=== PATIENT | male | born 1960 | race Caucasian/White ===

== ENCOUNTER 2016-06-08 09:55 | Inpatient (IN) | payer MEDICARE, OTHER ==
--- NOTE | ~2016-06-08 | IDS ---
Interim Discharge Summary [facility] [address] [place]. [address] NAME: SIMA DONG : 56 STATUS : ADM IN PAT#: [id number] AGE: 55 ADM/REG DATE : 06/08/16 MR#: [id number] REPORT SERV DATE: 07/07/16 DICTATED BY: JEFF MCCORMACK DATE: 07/07/16 REPORT STATUS : Draft TRANSCRIBED BY: MODL DATE: 07/07/16 ADMISSION DATE: 06/08/2016 DISCHARGE DATE: DATE OF INTERIM DISCHARGE: 07/07/2016. Please refer to interim discharge that was done on 06/17/2016. 06/28/2014, operative report by Dr. Perales. Upper GI endoscopy; impression, LA grade D reflux esophagitis. A gastrojejunostomy were found, anastomosis characterized by ulceration and active hemorrhage at the intact staple line. Injected and clip was placed. Jejunal blood, but no active bleeding distal to the anastomosis that was seen. Due to the bleeding and inability to localize the site for safe percutaneous placement, inadequate transillumination and inadequate 1:1 localization. PEG was not completed. Recommendation: Returnthe patient to hospital. Use Protonix 40 mg IV b.i.d. If the patient requires PEG tube, will need IR placement. Would not recommend at this time due to active GI bleeding. 06/30/2016, CT abdomen and pelvis with contrast. Intraluminal formation of large thrombus at the Alonzo-en-Y anastomosis in the left lower quadrant obstructing the limb leading to the duodenum and stomach. Critical results were discussed with Dr. Barnard at 1930 hours. 07/04/2016, CT of the abdomen and pelvis with contrast. Persistence of free air similar to involvement to 06/30/2016. Perforated hollow viscus is not excluded. Clinical correlation recommended. Developing discrete collection suspicious for abscess along the left lateral peritoneal cavity and in the pelvic cul-de-sac. Decreasing dilatation of bowel or anastomosis in the left lower quadrant consistent with evolving hematoma. 07/04/2016, CT-guided drain, technically successful decompression of left abdominal abscess. Exam was documented with 23 CT spot films. There were no immediate complications. Approximately 75 mL of purulent material was obtained and sent for cultures. 06/18/2016, operative report by Dr. Vigil: Procedure: Pancreaticojejunostomy Alonzo-en-Y, gastrojejunostomy with cholecystectomy. Preop diagnosis: Pancreatic pseudocyst with duodenal obstruction. Postop diagnosis: Pancreatic pseudocyst with duodenal obstruction with cholecystitis. Please refer to interim discharge that was done by nurse practitioner, Clint Murcia. REASON FOR ADMISSION: Pancreatic cyst with duodenal obstruction. 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 The patient underwent surgical procedures for the duodenal obstruction that was documented on 06/18/[address] Vigil. The patient underwent pancreaticojejunostomy, gastrojejunostomy, and cholecystectomy. Interim Discharge Summary [address] [address] NAME: SIMA DONG : 56 STATUS : ADM IN [facility]#: [id number] AGE: 55 ADM/REG DATE : 06/08/16 MR#: [id number] REPORT SERV DATE: 07/07/16 DICTATED BY: JEFF MCCORMACK DATE: 07/07/16 REPORT STATUS : Draft TRANSCRIBED BY: YOLANAD DATE: 07/07/16 The patient underwent procedure. Unfortunately, the patient had GI bleed, which Dr. Perales resolved with cauterization, however, the patient also developed abscess as well as a hematoma at the junction in the left lower quadrant, the limb leading to the duodenum in the stomach. The patient has been followed up by Surgery. Currently, the patient has been under conservative management regarding the abscess formation as well as the hematoma. DIAGNOSES ON DISCHARGE: 1. Epigastric pain secondary to pancreatic cyst with duodenal obstruction. Currently, the patient is asked to decrease his pain medication from Dilaudid to morphine, which has helped. Pancreatic pseudocyst with duodenal obstruction, status post resection since 06/18. 2. Hematoma/thrombus, left lower quadrant. Continue to monitor the patient's hemoglobin and hematocrit. The patient is still passing clots, purple in character. Reassured the patient that he will continue to pass clots at this time, and we will continue to monitor his hemoglobin. If hemoglobin falls below 8, transfuse two units packed RBCs. 3. Atrial fibrillation. Cardiology was consulted for the atrial fibrillation, but currently the patient is rate controlled. 4. Ileus secondary to epigastric pain secondary to pancreatic cyst with duodenal obstruction and hematoma/thrombus in the left lower quadrant. 5. Upper GI bleed secondary to epigastric pain secondary to pancreatic cyst with duodenal obstruction and hematoma/thrombus in the left lower quadrant. 6. Status post cauterization by Dr. Perales. Currently, the patient's hemoglobin and hematocrit has been stable. 7. Abscess formation in the left peritoneal cavity. The cultures have resulted, which showed positive for E coli, Klebsiella pneumoniae, and Staph aureus. The patient has been put on Zosyn, but with the addition of Staph aureus, the patient has also been put on vancomycin. Currently, we are waiting for the Staph aureus sensitivity. FBJ/MODL Jeff Mccormack MD / [id number] CC: Brown Vigil Jr., M.D.
--- NOTE | ~2016-06-08 | CN ---
Consultation Report [facility] [address] [place]. [address] NAME: SIMA DONG : 56 STATUS : ADM IN PAT#: [id number] AGE: 55 ADM/REG DATE : 06/08/16 MR#: [id number] REPORT SERV DATE: 06/09/16 DICTATED BY: DIMAS CAMPOS DATE: 06/09/16 REPORT STATUS : Draft TRANSCRIBED BY: MODL DATE: 06/09/16 SURGICAL CONSULTATION DATE OF CONSULTATION: 06/09/[address] Brown Vigil M.D. REQUESTING PHYSICIAN: Shayla Ivy M.D. REASON FOR CONSULTATION: Pancreatic mass, with nausea, vomiting, and duodenal obstruction. HISTORY OF PRESENT ILLNESS: This pleasant 55-year-old gentleman, who has had nausea and vomiting since 2006. He had outpatient evaluation since that time. He has Charcot-Justina- Tooth type 1C variant and is followed at [facility]. The patient has had progressive nausea, vomiting, and inability to keep any solids or liquids down, and was evaluated with a CT scan on an outpatient basis. The CT showed a cystic pancreatic mass in the uncinate process, with obstruction over the lower portion of the duodenum. Due to his progressive nausea and vomiting, he was admitted to the hospital. He had a CA 19-9, although that is normal. He has no fever, chills, abdominal pain, or significant change in bowel or bladder habits. He has had a significant weight loss since December. He states that some of this is on his own volition. He was scheduled to see GI on an outpatient basis prior to his system persisted and he is now admitted and MRI confirmed a complex pancreatic mass with no significant obstruction at this time, suspicious for a cystic neoplasm. He has no nausea or vomiting at this time. PAST MEDICAL HISTORY: As above. PAST SURGICAL HISTORY: Right inguinal hernia repair. ALLERGIES: ERYTHROMYCIN AND ALBUTEROL. SOCIAL HISTORY: The patient denies alcohol, tobacco, or illicit drug usage. FAMILY HISTORY: Positive for cancer. MEDICATIONS: [place] and Mobic. REVIEW OF SYSTEMS: The patient had some early bilious emesis. He has no coffee-grounds emesis or hematemesis. He has no bright red blood per rectum, melena, or change in the caliber of his stools. He has nausea with no vomiting at this time. He denies chest pain, shortness of breath, dyspnea on exertion, syncope, palpitations, jaundice, itching, or palmar erythema. LABORATORY DATA: Please see hospital chart. Consultation Report [facility] [address] [place]. [address] NAME: SIMA DONG : 56 STATUS : ADM IN [facility]#: [id number] AGE: 55 ADM/REG DATE : 06/08/16 MR#: [id number] REPORT SERV DATE: 06/09/16 DICTATED BY: DIMAS CAMPOS DATE: 06/09/16 REPORT STATUS : Draft TRANSCRIBED BY: MODL DATE: 06/09/16 ASSESSMENT: 1. Cystic pancreatic mass suspicious for neoplasm. 2. Progressive nausea and vomiting, secondary to pancreatic mass. 3. Jcxmelk-Dyfwa-Tbscv syndrome, type 1C variant. PLAN: At this time, we will continue bowel rest and IV fluids, for further evaluation. I will notify Dr. Vigil of the patient's admission, as the patient has progressive nausea and vomiting, we will order an NG tube. We will change IV fluids to contain dextrose. /YOLANDA Dimas Campos M.D. / [id number] CC: Zack Erickson M.D.
--- NOTE | ~2016-06-08 | EGD ---
EGD REPORT [facility] [address] [place]. [address] NAME: ALCIDES DONG : 56 STATUS : ADM IN PAT#: [id number] AGE: 55 ADM/REG DATE : 06/08/16 MR#: [id number] REPORT SERV DATE: 06/11/16 DICTATED BY: JAYCE GARCIA DATE: 06/11/16 REPORT STATUS : Draft TRANSCRIBED BY: [facility] DATE: 06/11/16 Endoscopy Center Patient Name: Alcides Dong Date of : 1960 Attending MD: JAYCE GARCIA MD Procedure Date No Time: 06/11/2016 Procedure: Upper EUS Indications: Cyst seen on CT scan, Cyst seen on MRI Medicines: Monitored Anesthesia Care Complications: No immediate complications. Estimated blood loss: Minimal. Procedure: After obtaining informed consent, the endoscope was passed under direct vision. Throughout the procedure, the patient's blood pressure, pulse, and oxygen saturations were monitored continuously. The GIF H190 [id number] was introduced through the mouth, and advanced to the second part of duodenum. The Endoscope was introduced through the mouth, and advanced to the second part of duodenum. The upper EUS was accomplished without difficulty. The patient tolerated the procedure well. Findings: Endoscopic Finding : The examined esophagus was endoscopically normal. The entire examined stomach was endoscopically normal. An acquired benign-appearing, intrinsic moderate stenosis was found at 2nd part of the duodenum from congestion of the mucosa and was non-traversed despite attempts with the EGD scope and the pediatric colonoscope. Endosonographic Finding : There was no sign of significant endosonographic abnormality in the common bile duct. No stones and no biliary sludge were identified. There was no sign of significant endosonographic abnormality in the entire pancreas. No masses, no cysts. The cystic lesion seen on the prior imaging was not seen, possibly due to the lesion being too distal to be reached with the EUS scope. There was no sign of significant endosonographic abnormality in the ampulla. No masses were identified. Endosonographic imaging of the visualized portion of the liver showed no abnormalities. A limited doppler examination was performed and revealed no significant vascular abnormalities. No lymphadenopathy seen. Impression: - Acquired duodenal congestion causing mild obstruction. EGD REPORT [address] [address] NAME: IKERALCIDES CASTILLO : 56 STATUS : ADM IN [facility]#: [id number] AGE: 55 ADM/REG DATE : 06/08/16 MR#: [id number] REPORT SERV DATE: 06/11/16 DICTATED BY: JAYCE GARCIA DATE: 06/11/16 REPORT STATUS : Draft TRANSCRIBED BY: [employer] DATE: 06/11/16 - There was no sign of significant pathology in the entire pancreas. - A cystic lesion was not seen on this examination - likely distal to the extent reached by the EUS scope Recommendation: - Return patient to hospital cuellar for ongoing care. - Do an upper GI series today. Procedure Code(s): --- Professional --- 81283, Esophagogastroduodenoscopy, flexible, transoral; with endoscopic ultrasound examination, including the esophagus, stomach, and either the duodenum or a surgically altered stomach where the jejunum is examined distal to the anastomosis Diagnosis Code(s): --- Professional --- K31.5, Obstruction of duodenum R93.3, Abnormal findings on diagnostic imaging of other parts of digestive tract R93.8, Abnormal findings on diagnostic imaging of other specified body structures CPT copyright 2013 [employer]. All rights reserved. The codes documented in this report are preliminary and upon lifeguard review may be revised to meet current compliance requirements. Jayce Garcia MD JAYCE GARCIA MD 06/11/2016 8:51 AM This report has been signed electronically. Number of Addenda: 0 Note Initiated On: 06/11/2016 7:47 AM Scope Withdrawal Time 0 hours 0 minutes 0 seconds [address] [id number]
--- NOTE | ~2016-06-08 | CN ---
Consultation Report [facility] [address] [place]. [address] NAME: SIMA DONG : 56 STATUS : ADM IN [facility]#: [id number] AGE: 55 ADM/REG DATE : 06/08/16 MR#: [id number] REPORT SERV DATE: 06/23/16 DICTATED BY: SONIDO SPRAGUE DATE: 06/23/16 REPORT STATUS : Draft TRANSCRIBED BY: MODL DATE: 06/23/16 CARDIOLOGY CONSULTATION DATE OF CONSULTATION: REASON FOR CONSULTATION: Atrial fibrillation with rapid ventricular rate. HISTORY OF PRESENT ILLNESS: The patient is a 55-year-old male, who has history of pancreatic cyst and duodenal obstruction. Intermittent nausea and vomiting over the last decade. Developed progressive pain symptoms and admitted with pancreatic mass found to be pseudocyst. The patient is now status post excision of pancreatic pseudocyst. Last evening, the patient developed atrial fibrillation with rapid ventricular rate. He is asymptomatic with the exception of palpitations. He is hemodynamically stable. He reports that several years ago, he developed the onset of atrial fibrillation with spontaneous conversion to sinus rhythm. Seen by Dr. Johanna Pedraza at that time. Recommended for chronic anticoagulation etc, the patient declined the same. The patient felt that his atrial fibrillation episode was related to bout of nausea and vomiting. He has had no cardiology followup since that time. Until onset of symptoms during this hospitalization, he has had no recurrent palpitations. He is currently comfortable. He denies chest pain, presyncope or syncope. Denies dyspnea. Nasogastric tube in place. Receiving TPN. He is postop day 4 after pancreatic pseudocyst excision. He is receiving nutrition by TPN. PAST MEDICAL HISTORY: Ntdzlnt-Rgwtd-Gdqvn disease. ALLERGIES: ALBUTEROL, ERYTHROMYCIN. FAMILY HISTORY: Father at age 32 of some type of cancers. Mother in her 70s following complications of some medical procedure. SOCIAL HISTORY: The patient denies tobacco, alcohol, or illicit drug use. REVIEW OF SYSTEMS: Negative for all organ systems except per the history of present illness. PHYSICAL EXAMINATION: VITAL SIGNS: Blood pressure 155/67, pulse 116 and regular, respirations 12 and unlabored, saturating 96% on 2 liters nasal cannula, weight 60 kg GENERAL: Thin middle-aged male, in no acute distress. Nasogastric tube in place. PICC line in the right upper extremity. HEENT: Normal. NECK: Supple, no JVD or bruit, normal carotid upstroke bilaterally, no thyromegaly. LUNGS: Decreased breath sounds at bases bilaterally. CARDIOLOGY: Irregularly regular rhythm, normal S1, S2, no thrill, no murmur, rubs or gallops, normal PMI. Consultation Report [facility] [address] [place]. [address] NAME: SIMA DONG : 56 STATUS : ADM IN PAT#: [id number] AGE: 55 ADM/REG DATE : 06/08/16 MR#: [id number] REPORT SERV DATE: 06/23/16 DICTATED BY: SONIDO SPRAGUE DATE: 06/23/16 REPORT STATUS : Draft TRANSCRIBED BY: YOLANDA DATE: 06/23/16 ABDOMEN: Bowel sounds positive, soft, nontender, and nondistended. No masses or aortic bruits. No hepatosplenomegaly or hepatojugular reflux. EXTREMITIES: No edema. Normal pulses. No clubbing or cyanosis. SKIN: Warm and dry, no significant rash. NEUROLOGIC: Alert and oriented x 3. Appropriate mood. LABORATORY DATA: Sodium 141, potassium 3.4, chloride 108, BUN 21, creatinine 0.64, glucose 161. WBC 13.5, hemoglobin 12.8, hematocrit 37.2, platelets 347,000. EKG: Atrial fibrillation with rapid ventricular rate. IMPRESSION: New onset atrial fibrillation. Remote history of same many years ago, which was self-limited. The patient currently not taking p.o. We will begin intravenous amiodarone bolus followed by drip. Begin intravenous metoprolol 5 mg q.4 hours IV for rate control. Continue diltiazem drip at maximal titratable level. Thank you for the opportunity to see the patient in consultation. We will continue to follow the patient with you. CSL/MODL Tracy Sprague M.D. / [id number] CC: Zack Benitez Jr., M.D.
--- NOTE | ~2016-06-08 | EGD ---
EGD REPORT [facility] [address] [place]. [address] NAME: ALCIDES DONG : 56 STATUS : ADM IN PAT#: [id number] AGE: 55 ADM/REG DATE : 06/08/16 MR#: [id number] REPORT SERV DATE: 06/28/16 DICTATED BY: JAYCE GARCIA DATE: 06/28/16 REPORT STATUS : Draft TRANSCRIBED BY: [facility] DATE: 06/28/16 Endoscopy Center Patient Name: Alcides Dong Date of : 1960 Attending MD: JAYCE GARCIA MD Procedure Date No Time: 06/28/2016 Procedure: Upper GI endoscopy Indications: Hematemesis, Hematochezia Medicines: Monitored Anesthesia Care Complications: No immediate complications. Estimated blood loss: Minimal. Procedure: Pre-Anesthesia Assessment: - ASA Grade Assessment: III - A patient with severe systemic disease. After obtaining informed consent, the endoscope was passed under direct vision. Throughout the procedure, the patient's blood pressure, pulse, and oxygen saturations were monitored continuously. The GIF H190 [id number] was introduced through the mouth, and advanced to the afferent and efferent jejunal loops. Findings: LA Grade D (one or more mucosal breaks involving at least 75% of esophageal circumference) esophagitis with no bleeding was found in the entire esophagus. Evidence of a gastrojejunostomy were found in the gastric body. The anastomosis was characterized by a hemorrhagic appearance, ulceration and an intact staple line. Area was successfully injected with 3 mL of a 1:10,000 solution of epinephrine for hemostasis. One hemostatic clip was successfully placed. Bleeding had stopped at the end of the procedure. Estimated blood loss was minimal. Red blood was found in the jejunum, likely secondary to the active bledding seen at the anastamosis. No active bleeding seen in the jejunal limbs after extensive washing. The patient was placed in the supine position for PEG placement. The stomach was insufflated to appose gastric and abdominal mcneill. However, due to inability to localize a site for safe percutaneous placement, inadequate transillumination and inadequate one-to-one localization (i.e. inadequate localization by palpation) PEG was not completed. No attempt was made at PEG placement also because of active upper GI bleeding. The needle/trocar was not passed. Impression: - LA Grade D reflux esophagitis. - A gastrojejunostomy were found, anastomosis characterized by ulceration and active hemaorrhage at EGD REPORT [address] [place]. [address] NAME: IKERALCIDES CASTILLO : 56 STATUS : ADM IN [facility]#: [id number] AGE: 55 ADM/REG DATE : 06/08/16 MR#: [id number] REPORT SERV DATE: 06/28/16 DICTATED BY: JAYCE GARCIA DATE: 06/28/16 REPORT STATUS : Draft TRANSCRIBED BY: [employer] DATE: 06/28/16 the intact staple line. Injected. Clip was placed. - Jejunal blood but no active bleeding distal to the anastamosis that was seen - Due to bleeding and inability to localize a site for safe percutaneous placement, inadequate transillumination and inadequate one-to-one localization (i.e. inadequate localization by palpation) PEG was not completed. The needle/trocar was not passed. Recommendation: - Return patient to hospital cuellar for ongoing care. - Use Protonix (pantoprazole) 40 mg IV BID. - If patient requires PEG tube, will need IR placement - Would not recommend at this time due to active GI bleeding Procedure Code(s): --- Professional --- 07875, Esophagogastroduodenoscopy, flexible, transoral; with control of bleeding, any method Diagnosis Code(s): --- Professional --- K21.0, Gastro-esophageal reflux disease with esophagitis K28.9, Gastrojejunal ulcer, unspecified as acute or chronic, without hemorrhage or perforation K92.2, Gastrointestinal hemorrhage, unspecified K92.0, Hematemesis K92.1, Melena CPT copyright 2013 [employer]. All rights reserved. The codes documented in this report are preliminary and upon probation and parole officer review may be revised to meet current compliance requirements. Jayce Garcia MD JAYCE GARCIA MD 06/28/2016 11:54 AM This report has been signed electronically. Number of Addenda: 0 Note Initiated On: 06/28/2016 11:03 AM Scope Withdrawal Time 0 hours 0 minutes 0 seconds [address] [place] [address]
--- NOTE | ~2016-06-08 | CN ---
Consultation Report [facility] [address] [place]. [address] NAME: SIMA DONG : 56 STATUS : ADM IN PAT#: [id number] AGE: 55 ADM/REG DATE : 06/08/16 MR#: [id number] REPORT SERV DATE: 06/08/16 DICTATED BY: AARON OLSON DATE: 06/08/16 REPORT STATUS : Draft TRANSCRIBED BY: MODL DATE: 06/08/16 GI CONSULTATION DATE OF CONSULTATION: 06/08/2016 REASON FOR CONSULTATION: Evaluation and management of pancreatic mass, nausea, and vomiting. HISTORY OF PRESENT ILLNESS: Mr. Dong is a pleasant 55-year-old male patient, who was to be seen by Dr. Spenser Davis in the outpatient setting secondary to pancreatic mass. He states that since last 06/03/2016, he has had intractable vomiting. He has at times had nausea, but states when he takes in any liquids that it immediately comes back up. He states he has lost 17 pounds in that time frame. He has not had any significant oral intake since around 6 o'clock yesterday afternoon. He was seen by Dr. Peña, his primary care physician who ordered a CT of the abdomen and pelvis, which was obtained on 06/07/2016. This is with and without contrast. It showed a 6.2 cm hypodense, circumscribed, nonenhancing "mass" arising contagious to the uncinate process of the pancreas and the wall of the third portion of the duodenum, may be medical billing representative of a hyperdense or hemorrhagic pseudocyst, possibly secondary to previous pancreatitis. He also then had an ultrasound, which showed that the gallbladder had no gallstones or wall thickening, but he had a 4.5 cm complex mass compressing the third portion of the duodenum resulting in a near-complete duodenal obstruction associated with marked fluid distention of the stomach. Secondary to these findings, he was going to be seen by Dr. Davis; however, symptoms have persisted. He was unable to take any significant oral intake and he was directed to the [facility] emergency room for further evaluation. I have seen the patient. I have discussed his history of present illness with him as well as I have discussed this with Dr. Perales. We will plan on pursuing an MRI with contrast to further delineate this area in the pancreas as well as discussing endoscopic ultrasound after having MRI results seen. We will order a CA-19-9. NG tube for decompression if intractable nausea and vomiting as well as keep him n.p.o. and hydrate him with IV fluids. He states he has been having these intermittent episodes since 2009 with nausea and vomiting, which typically resolved. He states he has been worked up with imaging, which found nothing on all of that. He has a history of heartburn. PAST MEDICAL HISTORY: For what he states is Zabsxjx-Muiby-Sjvxk syndrome with neuropathy. SURGICAL HISTORY: Hernia repair. FAMILY HISTORY: Cancer in both of his mother and father, who were both . SOCIAL HISTORY: He denies alcohol, tobacco, or illicits. ALLERGIES: ALBUTEROL AND ERYTHROMYCIN. HOME MEDICATIONS: [place] and Mobic. Consultation Report [address] [place]. [address] NAME: SIMA DONG : 56 STATUS : ADM IN [facility]#: [id number] AGE: 55 ADM/REG DATE : 06/08/16 MR#: [id number] REPORT SERV DATE: 06/08/16 DICTATED BY: AARON OLSON DATE: 06/08/16 REPORT STATUS : Draft TRANSCRIBED BY: YOLANDA DATE: 06/08/16 REVIEW OF SYSTEMS: A 10-point review of systems has been obtained with pertinent positives being addressed in the history of present illness. PHYSICAL EXAMINATION: VITAL SIGNS: He has a temperature of 98.5, pulse of 78, respirations of 24, and blood pressure is 128/68. NEURO: Reveals an alert, thin, male, resting in bed, but no focal deficits. GENERAL: Cooperative, in no apparent distress. Awake, alert, and oriented x3. HEAD, EARS, EYES, NOSE, AND THROAT: Anicteric. Pupils equal, round, reactive to light and accommodation. Normocephalic and atraumatic. NECK: No JVD. No palpable nodes. LUNGS: Decreased throughout with normal respiratory effort exhibited. CARDIOVASCULAR SYSTEM: Regular rate and rhythm. ABDOMEN: Soft and nontender with hypoactive bowel sounds. No distention. No rebound or guarding elicited on exam. EXTREMITIES: No edema. Normal distal pulses. SKIN: Warm, dry, and intact. LABORATORY DATA: Currently, there are no labs available for review. ASSESSMENT: 1. Pancreatic mass. 2. Duodenal obstruction secondary to pancreatic mass with nausea, vomiting/intractable. 3. History of Mwxpznv-Bkkju-Zknvu syndrome. PLAN: 1. MRI of the abdomen and pelvis with IV contrast. 2. Follow up above, questionable EUS on Saturday. 3. We will check a CA-19-9 level as well as LFTs, amylase, and lipase. We will follow. TARIK/YOLANDA [place] MARIA FERNANDA Aguilar / [id number] CC: Zack Erickson M.D.
--- NOTE | ~2016-06-08 | DS ---
Discharge Summary [facility] [address] [place]. [address] NAME: SIMA DONG : 56 STATUS : DIS IN PAT#: [id number] AGE: 55 ADM/REG DATE : 06/08/16 MR#: [id number] REPORT SERV DATE: 08/22/16 DICTATED BY: GRETCHEN VIGIL JR. DATE: 08/16/16 REPORT STATUS : Draft TRANSCRIBED BY: GENETL DATE: 08/16/16 ADMISSION DATE: 06/08/2016 DISCHARGE DATE: 07/18/2016 DIAGNOSES: 1. Pancreatic pseudocyst with duodenal obstruction. 2. Mqogdk-Wlpph-Xhlni disease. 3. Gastrointestinal bleeding. 4. Supraventricular tachycardia. PROCEDURES DURING ADMISSION: Pancreatic pseudocyst, jejunostomy, gastrojejunostomy, EGD, EUS, percutaneous drain placement. DISCHARGE MEDICATIONS: Are per APR. FOLLOWUP: Will be with Dr. Vigil. HISTORY AND HOSPITAL COURSE: This patient has history of chronic neurologic disease (Charcot Justina-Tooth). He also has had intermittent abdominal pain with chronic pancreatitis. He is admitted with anorexia, difficulty eating, weight loss, and abdominal pain. He is found to have a pancreatic pseudocyst, which appears to be causing obstruction. He was seen in consultation surgically after admission to the medical service. It was felt that a short course of perioperative TPN would be indicated and then surgical therapy to relieve the obstruction. He had undergone operation where he had the above noted procedure. His postoperative course was complicated by GI bleeding, which did require upper endoscopy for control. He also developed abdominal fluid collection that required percutaneous drainage with drain checks and manipulation. This required antibiotics. He had prolonged TPN because of gastroparesis and difficulty. Ultimately he was discharged home in satisfactory condition, tolerating a regular diet, to complete the remainder of his antibiotics. He will follow up with Dr. Vigil. DICTATED BY: Zack Benitez Jr./YOLANDA Gretchen Vigil Jr., M.D. / [id number] CC: Zack Benitez Jr., M.D.
--- NOTE | ~2016-06-08 | HP ---
History And Physical [address] [address] NAME: SIMA DONG : 56 STATUS : ADM IN PAT#: [id number] AGE: 55 ADM/REG DATE : 06/08/16 MR#: [id number] REPORT SERV DATE: 06/08/16 DICTATED BY: JR. PONCE WILLIAM JOHN DATE: 06/08/16 REPORT STATUS : Draft TRANSCRIBED BY: MODCassandra DATE: 06/08/16 DATE OF ADMISSION: 06/08/2016 BAG SEWER: Spenser Davis MD HISTORY OF PRESENT ILLNESS: This is a 55-year-old male, sent to the emergency room from Dr. Peña's office for pancreatic cysts with duodenal obstruction. The patient says he has had intermittent nausea and vomiting since 2006, and then starting Saturday, he has had intractable vomiting with epigastric pain. The pain is sharp, localized to the epigastrium without radiation. There were no aggravating or alleviating factors. He went to Dr. Peña's office and had a CT of the abdomen and pelvis as well as an ultrasound of the right upper quadrant done at [facility] with finding of a complex pancreatic cystic mass near the uncinate process with obstruction of the third part of the duodenum. I called and discussed the case with Dr. Peña. He states that they have been trying to get a hold of Dr. Davis' office and were instructed by Dr. Davis' office to send the patient to the emergency room. PAST MEDICAL HISTORY: 1. Right inguinal hernia repair. 2. Bggcutc-Ifrbg-Wumgl disease. MEDICATIONS: 1. [place] 10/325 q.4 h. p.r.n. 2. Mobic 15 mg at bedtime. ALLERGIES: ALBUTEROL AND ERYTHROMYCIN. FAMILY HISTORY: Mother in her 70s of medical maladventure. Father at age 32 of cancer. One sister living and healthy. His daughter has Anpcwte-Ontmm-Bwrue disease. SOCIAL HISTORY: Lives in [place], [place], with his . He is disabled. Denies tobacco, alcohol, or illicit drugs. REVIEW OF SYSTEMS: 12 systems were reviewed, all are negative, except nausea, vomiting, and constipation. PHYSICAL EXAMINATION: VITAL SIGNS: Temperature 98.4, blood pressure 172/81, heart rate of 111, respiratory rate of 18. GENERAL: The patient is alert, oriented, and interactive in no distress. HEENT: Pupils are equal, round, and reactive to light. Extraocular motions intact. Sclerae anicteric. Oropharynx is clear. Mucosal membranes are dry. NECK: Supple without jugular venous distention, thyromegaly, or bruits. CARDIOVASCULAR: S1, S2 without gallop, murmur, or rub. History And Physical [address] [address] NAME: SIMA DONG : 56 STATUS : ADM IN [facility]#: [id number] AGE: 55 ADM/REG DATE : 06/08/16 MR#: [id number] REPORT SERV DATE: 06/08/16 DICTATED BY: JR. PONCE WILLIAM JOHN DATE: 06/08/16 REPORT STATUS : Draft TRANSCRIBED BY: YOLANDA DATE: 06/08/16 LUNGS: Clear to auscultation with symmetrical chest rise. ABDOMEN: Soft, scaphoid, nontender, bowel sounds are present. EXTREMITIES: Show no clubbing, cyanosis, or edema. NEUROLOGIC: Cranial nerves 2 through 12 are intact. Strength and sensation are full and equal throughout. LYMPH NODE SURVEY: Negative in the cervical and supraclavicular regions. DERMATOLOGIC: Showed no masses or other lesions. LABORATORY DATA: White count 10.5, hemoglobin 15.8, platelets 365. PT 16.4, INR of 1.4, PTT of 31.4. Lipase 181. Sodium 138, potassium 3.6, chloride 95, bicarb 31, BUN 37, creatinine 0.8, glucose 84, lactate 2.5. Calcium 9.3, total protein 8.5, albumin 4.3, total bilirubin 1.3, alkaline phosphatase 133, SGOT of 14, SGPT of 8. CT of the abdomen and pelvis done 06/07/2016 at [facility] showed a 6.2 cm hypodense cystic masslike lesion near the uncinate process of the pancreas causing obstruction of the third part of the duodenum. Also, ultrasound of the gallbladder showed normal gallbladder with a 4.3 cm complex mass in the third part of duodenum with duodenal obstruction. ASSESSMENT AND PLAN: A 55-year-old white male with: 1. Cystic masslike lesion causing obstruction in the third part of the duodenum. We will ask GI and General Surgery to see the patient. I will also check a prolactin level to get a handle on if this could be an abscess. 2. Intractable nausea and vomiting secondary to duodenal obstruction. We will keep the patient n.p.o., put an NG tube if vomiting is intractable. We will provide analgesia and antiemetics. 3. Wxldysr-Nzpdt-Zkprm disease. Again, provide analgesia. 4. Acute kidney injury. IV fluid, hydrate, and monitor. 5. Full code. 6. Prophylaxis with heparin and Protonix. My partner and I will follow tomorrow. WJF/MODL Jayce Ponce Jr, MD / [id number] CC: Zack Erickson M.D.
--- NOTE | ~2016-06-08 | OP ---
Record Of Operation [facility] [address] [place]. [address] NAME: SIMA DONG : 56 STATUS : ADM IN PAT#: [id number] AGE: 55 ADM/REG DATE : 06/08/16 MR#: [id number] REPORT SERV DATE: 06/19/16 DICTATED BY: GRETCHEN MARC JR. DATE: 06/18/16 REPORT STATUS : Draft TRANSCRIBED BY: MODL DATE: 06/18/16 DATE OF PROCEDURE: 06/18/2016 SURGEON: Gretchen Marc M.D. FULL STACK DEVELOPER: Supa Landry PROCEDURE: Pancreaticojejunostomy (Alonzo-en-Y), gastrojejunostomy, and cholecystectomy. PREOPERATIVE DIAGNOSIS: Pancreatic pseudocyst with duodenal obstruction. POSTOPERATIVE DIAGNOSES: 1. Pancreatic pseudocyst with duodenal obstruction. 2. Cholecystitis. ANESTHESIA: General. INDICATIONS: The patient had presented with chronic pain and nausea. He was found to have an apparent pancreatic pseudocyst compressing the duodenum. This was not amenable to any endoscopic procedures and surgical drainage was indicated. FINDINGS: The abdomen, there was evidence of mass within the proximal small bowel mesentery which appeared to extend from the inferior portion of the pancreas. This did have the gross appearance consistent with pancreatic pseudocyst. This was explored. It did contain some clotted blood. The portion of the wall was excised and that showed fat necrosis and a fibrotic rim with no evidence of any neoplasm. This was compressing the duodenum and it was not apparent that compression with totally relieve this obstruction, therefore, gastrojejunostomy was performed. Additionally, the gallbladder was quite distended and inflamed and cholecystectomy was performed. DESCRIPTION OF PROCEDURE: With adequate general anesthesia, the patient was placed in supine position. The abdomen was prepped and draped sterilely. An upper midline incision was made. The dissection was carried down sharply through the subcutaneous tissues. The fascia and peritoneum were opened. The peritoneal cavity was entered and the above noted findings were encountered. The mass was approached from the patient's right side and it was opened sharply and a portion of the wall was excised and material evacuated. Then, the jejunum was freed up. A defect was made in the mesocolon and a loop of jejunum was brought through this to the posterior wall of stomach where a zzjp-gu-nycn gastrojejunal was created with a ALEX 75. The open end was closed with GA-60 and this was reinforced with suture of 3-0 silk. Distal to this, the bowel was divided again with the ALEX 75. The distal end was brought up for a Alonzo-en-Y defunctionalized limb type bypass and a cyst jejunostomy created with a running 3-0 Vicryl with outer for 3-0 silks. Then, distal approximately 40 cm an enteroenterostomy was created with ALEX 75 and the open end was closed with 3-0 silk sutures. Then, the gallbladder was removed. The cystic duct and artery were identified, clipped, and divided. The gallbladder was removed from its bed with electrocautery. It was extracted and was submitted to Pathology. Bleeding was controlled with electrocautery and Surgiflo. Record Of Operation [address] [address] NAME: SIMA DONG : 56 STATUS : ADM IN [facility]#: [id number] AGE: 55 ADM/REG DATE : 06/08/16 MR#: [id number] REPORT SERV DATE: 06/19/16 DICTATED BY: GRETCHEN MARC JR. DATE: 06/18/16 REPORT STATUS : Draft TRANSCRIBED BY: YOLANDA DATE: 06/18/16 Evicel was spread around the pancreatic cyst anastomosis. Hemostasis was assured. The wound was closed with a running 0 PDS to the fascia, 3-0 Vicryl, and subcuticular Monocryl. Negative pressure dressing was placed. The patient left the operating room in satisfactory condition. ESTIMATED BLOOD LOSS: 50 mL. JORGE/YLOANDA Gretchen Marc Jr., M.D. / [id number] CC: MD Mauricio Peters M.D.
--- NOTE | ~2016-06-08 | IDS ---
Interim Discharge Summary [facility] [address] [place]. [address] NAME: SIMA DONG : 56 STATUS : ADM IN PAT#: [id number] AGE: 55 ADM/REG DATE : 06/08/16 MR#: [id number] REPORT SERV DATE: 06/17/16 DICTATED BY: DATE: REPORT STATUS : Draft TRANSCRIBED BY: MODL DATE: 06/17/16 ADMISSION DATE: 06/08/2016 DISCHARGE DATE: INTERIM DISCHARGE DIAGNOSES: 1. Cystic mass. 2. Duodenal obstruction. 3. Nausea and vomiting due to duodenal obstruction. 4. Hypokalemia. 5. Rfncnkk-Fsqvd-Sdztm, 1C variant. 6. Moderate malnutrition. CONSULTING PHYSICIANS: Include Brown Vigil M.D. IMAGING: Includes MRI of the abdomen with and without contrast, which demonstrated 5 x 3 x 4.5 cm cystic mass involving the third portion of the duodenum. Anatomic relationship to the ventral surface of the pancreas is not clear. Findings may represent a large duodenal diverticulum, small bowel mass/tumor, pseudocyst of the pancreas, or large IPMN, GI and small bowel follow-through with air. This demonstrated compression of the duodenum due to extrinsic mass effect at the junction of the second and third portions resulting in only minimal passage of contrast distally. The duodenum was opacified at 1.5 hours, but the exam was discontinued since no contrast had passed into the jejunum in 1.5 hours. KUB demonstrated an obstructive process in the third and fourth section of the duodenum. PROCEDURES: The patient underwent endoscopic ultrasound with Dr. Jayce Perales. His impression was acquired duodenal congestion causing mild obstruction. There was no sign of significant pathology in the entire pancreas. The cystic lesion was not seen on this examination likely distal to the extent reached by the EUS scope. HOSPITAL COURSE/PROBLEM LIST: 1. Cystic mass unclear etiology. Dr. Brown Vigil was consulted for surgical intervention, and the patient will go to surgery on 06/18/2016 at 1 p.m. to determine whether this is a benign cyst versus a malignant process, and to relieve the duodenal obstruction. 2. Duodenal obstruction. The patient is n.p.o. He now has a PICC line with TPN for nutrition. 3. Nausea and vomiting. The patient denies nausea or vomiting in the last 24 hours. 4. Hypokalemia, this is resolved. 5. Zcgkyjg-Rcjwc-mlplb, 1C variant. 6. Malnutrition. As mentioned above, the patient has a PICC line with TPN. His albumin level on 06/15/2016, was 3.2, his pre-albumin was 18.6. Again, the patient is scheduled for surgery tomorrow on 06/18/2016, with Dr. Brown Vigil. He is hemodynamically stable. Discharge plan eventually is to get the patient home. CLR/MODL Interim Discharge Summary [address] [place]. [address] NAME: SIMA DONG : 56 STATUS : ADM IN [facility]#: [id number] AGE: 55 ADM/REG DATE : 06/08/16 MR#: [id number] REPORT SERV DATE: 06/17/16 DICTATED BY: DATE: REPORT STATUS : Draft TRANSCRIBED BY: MODCassandra DATE: 06/17/16 Clint Murcia NP / [id number] CC: MD Mauricio Peters M.D. Adrienne N Harrington, M.D.
[2016-06-08 10:38] LABS: BASOPHILS 0.2 %; BASOPHILS ABSOLUTE 0.02 10/3/uL (0.0-0.16); EOSINOPHILS 0.3 %; EOSINOPHILS ABSOLUTE 0.03 10/3/uL (0.0-0.53); ER CBC TAT 0 Hrs 05 Mins; HEMATOCRIT 44.9 % (40.0-51.0); HEMOGLOBIN 15.8 g/dL (13.6-17.8); IMMATURE GRANULOCYTES 0.3 %; IMMATURE GRANULOCYTES ABSOLUTE 0.03 10/3/uL (0.0-0.11); LYMPHOCYTES 18.2 %; LYMPHOCYTES ABSOLUTE 1.97 10/3/uL (0.67-4.30); MEAN CORPUS HGB CONC 35.2 g/dL (32.0-36.0); MEAN CORPUSCULAR HEMOGLOB 31.9 pg (26.0-34.0); MEAN CORPUSCULAR VOLUME 90.7 fL (80-100); MEAN PLATELET VOLUME 10.9 fL (9.2-13.0); MONOCYTES ABSOLUTE 0.87 10/3/uL (0.21-1.20); NEUTROPHILS ABSOLUTE 7.92 10/3/uL (2.02-8.40); PLATELET COUNT 365 10/3/uL (150-400); RBC DISTRIBUTION WIDTH 12.6 % (12.0-16.0); RED CELL COUNT 4.95 10/6/uL (4.7-6.1); WHITE BLOOD CELLS 10.8 10/3/uL (4.5-10.5)
[2016-06-08 10:41] LABS: MANUAL DIFF NO %
[2016-06-08 10:55] LABS: ALBUMIN 4.3 G/DL (3.5-5.0); ALKALINE PHOSPHATASE 133 U/L (45-117); BUN (BLOOD UREA NITROGEN) 37 MG/DL (6-23); CALCIUM, SERUM 9.3 MG/DL (8.5-10.4); CHLORIDE, SERUM 95 MMOL/L (96-112); CO2 (CARBON DIOXIDE) 31 MMOL/L (24-34); CREATININE 0.81 MG/DL (0.70-1.30); GFR AFRICAN AMERICAN 114 ML/MIN (>=60); GFR NON AFRICAN AMERICAN 99 ML/MIN (>=60); GLOBULIN 4.2 G/DL (2.5-4.1); GLUCOSE, SERUM 84 MG/DL (60-99); POTASSIUM, SERUM 3.6 MMOL/L (3.5-5.3); SGPT(ALT) 8 U/L (5-65); SODIUM, SERUM 138 MMOL/L (135-148); TOTAL BILIRUBIN 1.3 MG/DL (0-1.2); TOTAL PROTEIN 8.5 G/DL (6.0-8.5)
[2016-06-08 10:57] LABS: SGOT(AST) 14 U/L (5-40)
[2016-06-08 11:03] LABS: INTERNATIONAL NORMAL RATI 1.4 UNITS (-); PARTIAL THROMBO TIME 31.4 SEC (22.5-37.2); PROTIME (NOT ORD) 16.6 SEC (12.0-14.5)
[2016-06-08 11:17] LABS: LACTATE 2.5 MMOL/L (0.3-2.4)
[2016-06-08] MEDS ORDERED: NORCO1 TAB PO (11:20)
[2016-06-08] MEDS ORDERED: MOBIC15 MG PO (11:37)
[2016-06-08 15:59] LABS: CA-19-9 2.2 U/ML (< 37.0)
[2016-06-08 17:01] LABS: PROCALCITONIN <0.05 ng/mL (<0.5)
[2016-06-09 07:00] LABS: INTERNATIONAL NORMAL RATI 1.4 UNITS (-); PROTIME (NOT ORD) 17.2 SEC (12.0-14.5)
[2016-06-09 07:09] LABS: CREATININE 0.52 MG/DL (0.70-1.30); DIRECT BILIRUBIN 0.1 MG/DL (0.0-0.4); GFR AFRICAN AMERICAN 137 ML/MIN (>=60); GFR NON AFRICAN AMERICAN 118 ML/MIN (>=60); GLUCOSE, SERUM 70 MG/DL (60-99); POTASSIUM, SERUM 3.3 MMOL/L (3.5-5.3); SGOT(AST) 9 U/L (5-40); SODIUM, SERUM 141 MMOL/L (135-148)
[2016-06-09 07:12] LABS: ALBUMIN 3.3 G/DL (3.5-5.0); ALKALINE PHOSPHATASE 97 U/L (45-117); BUN (BLOOD UREA NITROGEN) 27 MG/DL (6-23); CALCIUM, SERUM 8.1 MG/DL (8.5-10.4); CHLORIDE, SERUM 106 MMOL/L (96-112); CO2 (CARBON DIOXIDE) 23 MMOL/L (24-34); INDIRECT BILIRUBIN(NOT ORDER) 0.7 MG/DL (0.1-0.9); SGPT(ALT) < 6 U/L (5-65); TOTAL BILIRUBIN 0.8 MG/DL (0-1.2); TOTAL PROTEIN 6.4 G/DL (6.0-8.5)
[2016-06-09 07:53] LABS: BASOPHILS 0.3 %; BASOPHILS ABSOLUTE 0.02 10/3/uL (0.0-0.16); EOSINOPHILS 1.8 %; EOSINOPHILS ABSOLUTE 0.14 10/3/uL (0.0-0.53); HEMOGLOBIN 12.9 g/dL (13.6-17.8); IMMATURE GRANULOCYTES 0.3 %; IMMATURE GRANULOCYTES ABSOLUTE 0.02 10/3/uL (0.0-0.11); LYMPHOCYTES 22.1 %; LYMPHOCYTES ABSOLUTE 1.71 10/3/uL (0.67-4.30); MEAN CORPUSCULAR HEMOGLOB 30.9 pg (26.0-34.0); MEAN CORPUSCULAR VOLUME 90.7 fL (80-100); MEAN PLATELET VOLUME 10.8 fL (9.2-13.0); MONOCYTES 8.8 %; MONOCYTES ABSOLUTE 0.68 10/3/uL (0.21-1.20); NEUTROPHILS 66.7 %; NEUTROPHILS ABSOLUTE 5.16 10/3/uL (2.02-8.40); PLATELET COUNT 259 10/3/uL (150-400); RBC DISTRIBUTION WIDTH 12.9 % (12.0-16.0); RED CELL COUNT 4.18 10/6/uL (4.7-6.1); WHITE BLOOD CELLS 7.7 10/3/uL (4.5-10.5)
[2016-06-09 07:55] LABS: HEMATOCRIT 37.9 % (40.0-51.0); MANUAL DIFF NO %
[2016-06-10 06:12] LABS: BASOPHILS 0.2 %; BASOPHILS ABSOLUTE 0.01 10/3/uL (0.0-0.16); EOSINOPHILS 2.3 %; EOSINOPHILS ABSOLUTE 0.15 10/3/uL (0.0-0.53); HEMATOCRIT 35.3 % (40.0-51.0); HEMOGLOBIN 12.1 g/dL (13.6-17.8); IMMATURE GRANULOCYTES 0.2 %; IMMATURE GRANULOCYTES ABSOLUTE 0.01 10/3/uL (0.0-0.11); LYMPHOCYTES 24.3 %; LYMPHOCYTES ABSOLUTE 1.57 10/3/uL (0.67-4.30); MEAN CORPUS HGB CONC 34.3 g/dL (32.0-36.0); MEAN CORPUSCULAR HEMOGLOB 30.9 pg (26.0-34.0); MEAN CORPUSCULAR VOLUME 90.1 fL (80-100); MEAN PLATELET VOLUME 10.9 fL (9.2-13.0); MONOCYTES 8.4 %; MONOCYTES ABSOLUTE 0.54 10/3/uL (0.21-1.20); NEUTROPHILS 64.6 %; NEUTROPHILS ABSOLUTE 4.18 10/3/uL (2.02-8.40); PLATELET COUNT 240 10/3/uL (150-400); RBC DISTRIBUTION WIDTH 12.9 % (12.0-16.0); RED CELL COUNT 3.92 10/6/uL (4.7-6.1); WHITE BLOOD CELLS 6.5 10/3/uL (4.5-10.5)
[2016-06-10 06:13] LABS: MANUAL DIFF NO %
[2016-06-10 06:24] LABS: BUN (BLOOD UREA NITROGEN) 14 MG/DL (6-23); CALCIUM, SERUM 8.3 MG/DL (8.5-10.4); CHLORIDE, SERUM 107 MMOL/L (96-112); CO2 (CARBON DIOXIDE) 27 MMOL/L (24-34); CREATININE 0.54 MG/DL (0.70-1.30); GFR AFRICAN AMERICAN 135 ML/MIN (>=60); GFR NON AFRICAN AMERICAN 117 ML/MIN (>=60); GLUCOSE, SERUM 90 MG/DL (60-99); POTASSIUM, SERUM 3.8 MMOL/L (3.5-5.3); SODIUM, SERUM 144 MMOL/L (135-148)
[2016-06-10 06:26] LABS: INTERNATIONAL NORMAL RATI 1.6 UNITS (-); PROTIME (NOT ORD) 18.5 SEC (12.0-14.5)
[2016-06-11 06:54] LABS: INTERNATIONAL NORMAL RATI 1.6 UNITS (-); PROTIME (NOT ORD) 18.5 SEC (12.0-14.5)
[2016-06-11 07:00] LABS: CALCIUM, SERUM 8.8 MG/DL (8.5-10.4); CHLORIDE, SERUM 106 MMOL/L (96-112); CO2 (CARBON DIOXIDE) 26 MMOL/L (24-34); CREATININE 0.61 MG/DL (0.70-1.30); GFR AFRICAN AMERICAN 128 ML/MIN (>=60); GFR NON AFRICAN AMERICAN 111 ML/MIN (>=60); GLUCOSE, SERUM 94 MG/DL (60-99); POTASSIUM, SERUM 3.4 MMOL/L (3.5-5.3); SODIUM, SERUM 142 MMOL/L (135-148)
[2016-06-11 07:02] LABS: BUN (BLOOD UREA NITROGEN) 7 MG/DL (6-23)
[2016-06-12 06:58] LABS: BUN (BLOOD UREA NITROGEN) 9 MG/DL (6-23); CALCIUM, SERUM 8.3 MG/DL (8.5-10.4); CHLORIDE, SERUM 107 MMOL/L (96-112); CO2 (CARBON DIOXIDE) 24 MMOL/L (24-34); CREATININE 0.63 MG/DL (0.70-1.30); GFR AFRICAN AMERICAN 127 ML/MIN (>=60); GFR NON AFRICAN AMERICAN 109 ML/MIN (>=60); GLUCOSE, SERUM 90 MG/DL (60-99); POTASSIUM, SERUM 3.2 MMOL/L (3.5-5.3); SODIUM, SERUM 143 MMOL/L (135-148)
[2016-06-13 06:35] LABS: BUN (BLOOD UREA NITROGEN) 11 MG/DL (6-23); CALCIUM, SERUM 8.4 MG/DL (8.5-10.4); CHLORIDE, SERUM 106 MMOL/L (96-112); CO2 (CARBON DIOXIDE) 25 MMOL/L (24-34); CREATININE 0.54 MG/DL (0.70-1.30); GFR AFRICAN AMERICAN 135 ML/MIN (>=60); GFR NON AFRICAN AMERICAN 117 ML/MIN (>=60); GLUCOSE, SERUM 100 MG/DL (60-99); PHOSPHORUS, SERUM 2.1 MG/DL (2.5-4.5); POTASSIUM, SERUM 3.2 MMOL/L (3.5-5.3); SODIUM, SERUM 143 MMOL/L (135-148)
[2016-06-13 11:07] LABS: A/G RATIO 1.1 (0.7-1.9); ALBUMIN 3.6 G/DL (3.5-5.0); ALKALINE PHOSPHATASE 99 U/L (45-117); BUN (BLOOD UREA NITROGEN) 11 MG/DL (6-23); CALCIUM, SERUM 8.5 MG/DL (8.5-10.4); CHLORIDE, SERUM 107 MMOL/L (96-112); CO2 (CARBON DIOXIDE) 26 MMOL/L (24-34); CREATININE 0.45 MG/DL (0.70-1.30); GFR AFRICAN AMERICAN 146 ML/MIN (>=60); GFR NON AFRICAN AMERICAN 126 ML/MIN (>=60); GLOBULIN 3.4 G/DL (2.5-4.1); GLUCOSE, SERUM 104 MG/DL (60-99); POTASSIUM, SERUM 3.8 MMOL/L (3.5-5.3); PREALBUMIN 16.5 MG/DL (17.0-43.0); SGOT(AST) 7 U/L (5-40); SODIUM, SERUM 141 MMOL/L (135-148); TOTAL BILIRUBIN 0.8 MG/DL (0-1.2)
[2016-06-13 11:08] LABS: SGPT(ALT) < 6 U/L (5-65)
[2016-06-13 13:02] LABS: BASOPHILS 0.1 %; BASOPHILS ABSOLUTE 0.01 10/3/uL (0.0-0.16); EOSINOPHILS 0 %; HEMOGLOBIN 13.6 g/dL (13.6-17.8); IMMATURE GRANULOCYTES 0.4 %; IMMATURE GRANULOCYTES ABSOLUTE 0.03 10/3/uL (0.0-0.11); LYMPHOCYTES 11.9 %; LYMPHOCYTES ABSOLUTE 0.98 10/3/uL (0.67-4.30); MEAN CORPUS HGB CONC 35.8 g/dL (32.0-36.0); MEAN CORPUSCULAR HEMOGLOB 31.6 pg (26.0-34.0); MEAN CORPUSCULAR VOLUME 88.4 fL (80-100); MEAN PLATELET VOLUME 11.6 fL (9.2-13.0); MONOCYTES 8.4 %; MONOCYTES ABSOLUTE 0.69 10/3/uL (0.21-1.20); NEUTROPHILS 79.2 %; PLATELET COUNT 265 10/3/uL (150-400); RBC DISTRIBUTION WIDTH 12.9 % (12.0-16.0); WHITE BLOOD CELLS 8.2 10/3/uL (4.5-10.5)
[2016-06-13 13:03] LABS: MANUAL DIFF NO %
[2016-06-14 06:28] LABS: CALCIUM, SERUM 8.1 MG/DL (8.5-10.4); CHLORIDE, SERUM 104 MMOL/L (96-112); CO2 (CARBON DIOXIDE) 28 MMOL/L (24-34); CREATININE 0.66 MG/DL (0.70-1.30); GFR AFRICAN AMERICAN 124 ML/MIN (>=60); GFR NON AFRICAN AMERICAN 107 ML/MIN (>=60); GLUCOSE, SERUM 121 MG/DL (60-99); POTASSIUM, SERUM 3.3 MMOL/L (3.5-5.3); SODIUM, SERUM 141 MMOL/L (135-148); TRIGLYCERIDE 96 MG/DL (< 150)
[2016-06-14 06:29] LABS: BUN (BLOOD UREA NITROGEN) 16 MG/DL (6-23); PHOSPHORUS, SERUM 2.9 MG/DL (2.5-4.5)
[2016-06-14 07:11] LABS: PREALBUMIN 15.4 MG/DL (17.0-43.0)
[2016-06-15 07:00] LABS: A/G RATIO 0.9 (0.7-1.9); ALBUMIN 3.2 G/DL (3.5-5.0); ALKALINE PHOSPHATASE 95 U/L (45-117); CALCIUM, SERUM 7.9 MG/DL (8.5-10.4); CHLORIDE, SERUM 107 MMOL/L (96-112); CO2 (CARBON DIOXIDE) 27 MMOL/L (24-34); CREATININE 0.68 MG/DL (0.70-1.30); GFR AFRICAN AMERICAN 123 ML/MIN (>=60); GFR NON AFRICAN AMERICAN 106 ML/MIN (>=60); GLOBULIN 3.4 G/DL (2.5-4.1); PHOSPHORUS, SERUM 2.8 MG/DL (2.5-4.5); POTASSIUM, SERUM 3.7 MMOL/L (3.5-5.3); PREALBUMIN 18.6 MG/DL (17.0-43.0); SGOT(AST) 7 U/L (5-40); SGPT(ALT) 7 U/L (5-65); SODIUM, SERUM 143 MMOL/L (135-148); TOTAL BILIRUBIN 0.5 MG/DL (0-1.2); TOTAL PROTEIN 6.6 G/DL (6.0-8.5)
[2016-06-15 07:02] LABS: BUN (BLOOD UREA NITROGEN) 22 MG/DL (6-23); GLUCOSE, SERUM 89 MG/DL (60-99)
[2016-06-16 05:14] LABS: CALCIUM, SERUM 8.2 MG/DL (8.5-10.4); CHLORIDE, SERUM 106 MMOL/L (96-112); CO2 (CARBON DIOXIDE) 27 MMOL/L (24-34); CREATININE 0.73 MG/DL (0.70-1.30); GFR AFRICAN AMERICAN 119 ML/MIN (>=60); GFR NON AFRICAN AMERICAN 103 ML/MIN (>=60); GLUCOSE, SERUM 101 MG/DL (60-99); PHOSPHORUS, SERUM 3.5 MG/DL (2.5-4.5); SODIUM, SERUM 142 MMOL/L (135-148)
[2016-06-16 05:15] LABS: BUN (BLOOD UREA NITROGEN) 28 MG/DL (6-23)
[2016-06-17 04:53] LABS: BUN (BLOOD UREA NITROGEN) 30 MG/DL (6-23); CALCIUM, SERUM 8.1 MG/DL (8.5-10.4); CHLORIDE, SERUM 107 MMOL/L (96-112); CO2 (CARBON DIOXIDE) 25 MMOL/L (24-34); CREATININE 0.58 MG/DL (0.70-1.30); GFR AFRICAN AMERICAN 131 ML/MIN (>=60); GFR NON AFRICAN AMERICAN 113 ML/MIN (>=60); GLUCOSE, SERUM 110 MG/DL (60-99); POTASSIUM, SERUM 3.8 MMOL/L (3.5-5.3); SODIUM, SERUM 141 MMOL/L (135-148)
[2016-06-18 04:36] LABS: BASOPHILS 0.4 %; BASOPHILS ABSOLUTE 0.04 10/3/uL (0.0-0.16); EOSINOPHILS 2.8 %; EOSINOPHILS ABSOLUTE 0.29 10/3/uL (0.0-0.53); HEMATOCRIT 40.1 % (40.0-51.0); HEMOGLOBIN 14.1 g/dL (13.6-17.8); IMMATURE GRANULOCYTES 0.1 %; IMMATURE GRANULOCYTES ABSOLUTE 0.01 10/3/uL (0.0-0.11); LYMPHOCYTES 14.3 %; LYMPHOCYTES ABSOLUTE 1.47 10/3/uL (0.67-4.30); MANUAL DIFF NO %; MEAN CORPUS HGB CONC 35.2 g/dL (32.0-36.0); MEAN CORPUSCULAR HEMOGLOB 31.8 pg (26.0-34.0); MEAN CORPUSCULAR VOLUME 90.3 fL (80-100); MEAN PLATELET VOLUME 11.6 fL (9.2-13.0); MONOCYTES 8.9 %; MONOCYTES ABSOLUTE 0.91 10/3/uL (0.21-1.20); NEUTROPHILS 73.5 %; NEUTROPHILS ABSOLUTE 7.53 10/3/uL (2.02-8.40); PLATELET COUNT 247 10/3/uL (150-400); RBC DISTRIBUTION WIDTH 12.9 % (12.0-16.0); RED CELL COUNT 4.44 10/6/uL (4.7-6.1); WHITE BLOOD CELLS 10.3 10/3/uL (4.5-10.5)
[2016-06-18 04:59] LABS: A/G RATIO 0.9 (0.7-1.9); ALBUMIN 3.3 G/DL (3.5-5.0); BUN (BLOOD UREA NITROGEN) 29 MG/DL (6-23); CALCIUM, SERUM 8.4 MG/DL (8.5-10.4); CHLORIDE, SERUM 106 MMOL/L (96-112); CO2 (CARBON DIOXIDE) 25 MMOL/L (24-34); CREATININE 0.54 MG/DL (0.70-1.30); GFR AFRICAN AMERICAN 135 ML/MIN (>=60); GFR NON AFRICAN AMERICAN 117 ML/MIN (>=60); GLOBULIN 3.7 G/DL (2.5-4.1); GLUCOSE, SERUM 112 MG/DL (60-99); PHOSPHORUS, SERUM 3.2 MG/DL (2.5-4.5); POTASSIUM, SERUM 3.8 MMOL/L (3.5-5.3); SGOT(AST) 17 U/L (5-40); SGPT(ALT) 13 U/L (5-65); SODIUM, SERUM 140 MMOL/L (135-148); TOTAL BILIRUBIN 0.5 MG/DL (0-1.2)
[2016-06-18 05:03] LABS: ALKALINE PHOSPHATASE 118 U/L (45-117)
[2016-06-18 18:36] LABS: BASOPHILS 0.1 %; BASOPHILS ABSOLUTE 0.01 10/3/uL (0.0-0.16); EOSINOPHILS 0.4 %; EOSINOPHILS ABSOLUTE 0.07 10/3/uL (0.0-0.53); HEMATOCRIT 39.4 % (40.0-51.0); HEMOGLOBIN 13.6 g/dL (13.6-17.8); IMMATURE GRANULOCYTES 0.3 %; IMMATURE GRANULOCYTES ABSOLUTE 0.06 10/3/uL (0.0-0.11); LYMPHOCYTES 4.3 %; LYMPHOCYTES ABSOLUTE 0.74 10/3/uL (0.67-4.30); MEAN CORPUS HGB CONC 34.5 g/dL (32.0-36.0); MEAN CORPUSCULAR HEMOGLOB 31.3 pg (26.0-34.0); MEAN CORPUSCULAR VOLUME 90.6 fL (80-100); MEAN PLATELET VOLUME 12.2 fL (9.2-13.0); MONOCYTES 3.6 %; MONOCYTES ABSOLUTE 0.62 10/3/uL (0.21-1.20); NEUTROPHILS 91.3 %; NEUTROPHILS ABSOLUTE 15.85 10/3/uL (2.02-8.40); PLATELET COUNT 302 10/3/uL (150-400); RBC DISTRIBUTION WIDTH 12.8 % (12.0-16.0); RED CELL COUNT 4.35 10/6/uL (4.7-6.1)
[2016-06-18 18:38] LABS: MANUAL DIFF NO %; WHITE BLOOD CELLS 17.4 10/3/uL (4.5-10.5)
[2016-06-18 18:46] LABS: CALCIUM, SERUM 8.2 MG/DL (8.5-10.4); CHLORIDE, SERUM 108 MMOL/L (96-112); CO2 (CARBON DIOXIDE) 21 MMOL/L (24-34); CREATININE 0.65 MG/DL (0.70-1.30); GFR AFRICAN AMERICAN 125 ML/MIN (>=60); GFR NON AFRICAN AMERICAN 108 ML/MIN (>=60); POTASSIUM, SERUM 4.5 MMOL/L (3.5-5.3); SODIUM, SERUM 138 MMOL/L (135-148)
[2016-06-18 18:49] LABS: BUN (BLOOD UREA NITROGEN) 22 MG/DL (6-23); GLUCOSE, SERUM 213 MG/DL (60-99)
[2016-06-19 05:59] LABS: BASOPHILS 0.1 %; BASOPHILS ABSOLUTE 0.01 10/3/uL (0.0-0.16); EOSINOPHILS 0 %; HEMATOCRIT 41.6 % (40.0-51.0); HEMOGLOBIN 14.3 g/dL (13.6-17.8); IMMATURE GRANULOCYTES 0.2 %; IMMATURE GRANULOCYTES ABSOLUTE 0.04 10/3/uL (0.0-0.11); LYMPHOCYTES 5.7 %; LYMPHOCYTES ABSOLUTE 0.96 10/3/uL (0.67-4.30); MEAN CORPUS HGB CONC 34.4 g/dL (32.0-36.0); MEAN CORPUSCULAR HEMOGLOB 31.5 pg (26.0-34.0); MEAN CORPUSCULAR VOLUME 91.6 fL (80-100); MEAN PLATELET VOLUME 12.3 fL (9.2-13.0); MONOCYTES 11.3 %; NEUTROPHILS 82.7 %; NEUTROPHILS ABSOLUTE 13.84 10/3/uL (2.02-8.40); PLATELET COUNT 290 10/3/uL (150-400); RBC DISTRIBUTION WIDTH 12.8 % (12.0-16.0); RED CELL COUNT 4.54 10/6/uL (4.7-6.1); WHITE BLOOD CELLS 16.8 10/3/uL (4.5-10.5)
[2016-06-19 06:02] LABS: MANUAL DIFF NO %
[2016-06-19 06:17] LABS: A/G RATIO 0.8 (0.7-1.9); ALBUMIN 3.2 G/DL (3.5-5.0); BUN (BLOOD UREA NITROGEN) 21 MG/DL (6-23); CALCIUM, SERUM 8.5 MG/DL (8.5-10.4); CHLORIDE, SERUM 101 MMOL/L (96-112); CO2 (CARBON DIOXIDE) 25 MMOL/L (24-34); GFR AFRICAN AMERICAN 121 ML/MIN (>=60); GFR NON AFRICAN AMERICAN 105 ML/MIN (>=60); GLOBULIN 3.9 G/DL (2.5-4.1); PHOSPHORUS, SERUM 2.9 MG/DL (2.5-4.5); POTASSIUM, SERUM 4.4 MMOL/L (3.5-5.3); SGOT(AST) 64 U/L (5-40); SGPT(ALT) 41 U/L (5-65); SODIUM, SERUM 135 MMOL/L (135-148); TOTAL BILIRUBIN 0.9 MG/DL (0-1.2); TOTAL PROTEIN 7.1 G/DL (6.0-8.5)
[2016-06-19 06:19] LABS: ALKALINE PHOSPHATASE 138 U/L (45-117); GLUCOSE, SERUM 158 MG/DL (60-99)
[2016-06-20 06:47] LABS: BASOPHILS 0.3 %; BASOPHILS ABSOLUTE 0.05 10/3/uL (0.0-0.16); EOSINOPHILS 0.4 %; EOSINOPHILS ABSOLUTE 0.06 10/3/uL (0.0-0.53); HEMOGLOBIN 13.3 g/dL (13.6-17.8); IMMATURE GRANULOCYTES 0.4 %; IMMATURE GRANULOCYTES ABSOLUTE 0.07 10/3/uL (0.0-0.11); LYMPHOCYTES 7.1 %; LYMPHOCYTES ABSOLUTE 1.14 10/3/uL (0.67-4.30); MEAN CORPUS HGB CONC 34.1 g/dL (32.0-36.0); MEAN CORPUSCULAR HEMOGLOB 31.5 pg (26.0-34.0); MEAN CORPUSCULAR VOLUME 92.4 fL (80-100); MEAN PLATELET VOLUME 12.6 fL (9.2-13.0); MONOCYTES 13.4 %; MONOCYTES ABSOLUTE 2.15 10/3/uL (0.21-1.20); NEUTROPHILS 78.4 %; NEUTROPHILS ABSOLUTE 12.56 10/3/uL (2.02-8.40); PLATELET COUNT 240 10/3/uL (150-400); RBC DISTRIBUTION WIDTH 12.8 % (12.0-16.0); RED CELL COUNT 4.22 10/6/uL (4.7-6.1)
[2016-06-20 06:49] LABS: MANUAL DIFF NO %
[2016-06-20 07:54] LABS: A/G RATIO 0.6 (0.7-1.9); ALBUMIN 2.6 G/DL (3.5-5.0); BUN (BLOOD UREA NITROGEN) 18 MG/DL (6-23); CALCIUM, SERUM 8.5 MG/DL (8.5-10.4); CHLORIDE, SERUM 101 MMOL/L (96-112); CO2 (CARBON DIOXIDE) 26 MMOL/L (24-34); CREATININE 0.61 MG/DL (0.70-1.30); GFR AFRICAN AMERICAN 128 ML/MIN (>=60); GFR NON AFRICAN AMERICAN 111 ML/MIN (>=60); GLOBULIN 4.1 G/DL (2.5-4.1); GLUCOSE, SERUM 145 MG/DL (60-99); POTASSIUM, SERUM 4.2 MMOL/L (3.5-5.3); SGOT(AST) 33 U/L (5-40); SGPT(ALT) 27 U/L (5-65); SODIUM, SERUM 135 MMOL/L (135-148); TOTAL PROTEIN 6.7 G/DL (6.0-8.5)
[2016-06-20 07:55] LABS: ALKALINE PHOSPHATASE 122 U/L (45-117); PHOSPHORUS, SERUM 1.5 MG/DL (2.5-4.5)
[2016-06-21 05:57] LABS: BASOPHILS 0.3 %; BASOPHILS ABSOLUTE 0.04 10/3/uL (0.0-0.16); EOSINOPHILS 0.9 %; EOSINOPHILS ABSOLUTE 0.13 10/3/uL (0.0-0.53); HEMATOCRIT 36.3 % (40.0-51.0); HEMOGLOBIN 12.4 g/dL (13.6-17.8); IMMATURE GRANULOCYTES 0.5 %; IMMATURE GRANULOCYTES ABSOLUTE 0.07 10/3/uL (0.0-0.11); LYMPHOCYTES 8.6 %; LYMPHOCYTES ABSOLUTE 1.31 10/3/uL (0.67-4.30); MEAN CORPUS HGB CONC 34.2 g/dL (32.0-36.0); MEAN CORPUSCULAR HEMOGLOB 31.7 pg (26.0-34.0); MEAN CORPUSCULAR VOLUME 92.8 fL (80-100); MEAN PLATELET VOLUME 12.8 fL (9.2-13.0); MONOCYTES ABSOLUTE 1.51 10/3/uL (0.21-1.20); NEUTROPHILS 79.7 %; NEUTROPHILS ABSOLUTE 12.11 10/3/uL (2.02-8.40); PLATELET COUNT 238 10/3/uL (150-400); RED CELL COUNT 3.91 10/6/uL (4.7-6.1); WHITE BLOOD CELLS 15.2 10/3/uL (4.5-10.5)
[2016-06-21 05:59] LABS: MANUAL DIFF NO %
[2016-06-21 06:07] LABS: A/G RATIO 0.6 (0.7-1.9); ALBUMIN 2.5 G/DL (3.5-5.0); ALKALINE PHOSPHATASE 128 U/L (45-117); BUN (BLOOD UREA NITROGEN) 18 MG/DL (6-23); CALCIUM, SERUM 8.7 MG/DL (8.5-10.4); CHLORIDE, SERUM 101 MMOL/L (96-112); CO2 (CARBON DIOXIDE) 26 MMOL/L (24-34); CREATININE 0.58 MG/DL (0.70-1.30); GFR AFRICAN AMERICAN 131 ML/MIN (>=60); GFR NON AFRICAN AMERICAN 113 ML/MIN (>=60); GLOBULIN 4.1 G/DL (2.5-4.1); PHOSPHORUS, SERUM 2.4 MG/DL (2.5-4.5); POTASSIUM, SERUM 3.7 MMOL/L (3.5-5.3); SGOT(AST) 24 U/L (5-40); SGPT(ALT) 23 U/L (5-65); SODIUM, SERUM 137 MMOL/L (135-148); TOTAL BILIRUBIN 1.4 MG/DL (0-1.2); TOTAL PROTEIN 6.6 G/DL (6.0-8.5)
[2016-06-21 06:11] LABS: GLUCOSE, SERUM 110 MG/DL (60-99)
[2016-06-22 05:35] LABS: A/G RATIO 0.5 (0.7-1.9); ALBUMIN 2.3 G/DL (3.5-5.0); CALCIUM, SERUM 8.5 MG/DL (8.5-10.4); CHLORIDE, SERUM 104 MMOL/L (96-112); CO2 (CARBON DIOXIDE) 27 MMOL/L (24-34); CREATININE 0.65 MG/DL (0.70-1.30); GFR AFRICAN AMERICAN 125 ML/MIN (>=60); GFR NON AFRICAN AMERICAN 108 ML/MIN (>=60); GLOBULIN 4.2 G/DL (2.5-4.1); GLUCOSE, SERUM 132 MG/DL (60-99); POTASSIUM, SERUM 3.5 MMOL/L (3.5-5.3); PREALBUMIN 8.3 MG/DL (17.0-43.0); SGOT(AST) 29 U/L (5-40); SGPT(ALT) 23 U/L (5-65); SODIUM, SERUM 142 MMOL/L (135-148); TOTAL BILIRUBIN 1.5 MG/DL (0-1.2); TOTAL PROTEIN 6.5 G/DL (6.0-8.5)
[2016-06-22 05:38] LABS: BASOPHILS 0.3 %; BASOPHILS ABSOLUTE 0.03 10/3/uL (0.0-0.16); EOSINOPHILS 2.3 %; EOSINOPHILS ABSOLUTE 0.24 10/3/uL (0.0-0.53); HEMATOCRIT 34.2 % (40.0-51.0); HEMOGLOBIN 11.5 g/dL (13.6-17.8); IMMATURE GRANULOCYTES 0.4 %; IMMATURE GRANULOCYTES ABSOLUTE 0.04 10/3/uL (0.0-0.11); LYMPHOCYTES 7.5 %; LYMPHOCYTES ABSOLUTE 0.79 10/3/uL (0.67-4.30); MEAN CORPUS HGB CONC 33.6 g/dL (32.0-36.0); MEAN CORPUSCULAR VOLUME 92.2 fL (80-100); MEAN PLATELET VOLUME 12.5 fL (9.2-13.0); MONOCYTES ABSOLUTE 1.36 10/3/uL (0.21-1.20); NEUTROPHILS 76.5 %; NEUTROPHILS ABSOLUTE 8.01 10/3/uL (2.02-8.40); PLATELET COUNT 272 10/3/uL (150-400); RBC DISTRIBUTION WIDTH 12.9 % (12.0-16.0); RED CELL COUNT 3.71 10/6/uL (4.7-6.1); WHITE BLOOD CELLS 10.5 10/3/uL (4.5-10.5)
[2016-06-22 05:40] LABS: MANUAL DIFF NO %
[2016-06-22 05:49] LABS: ALKALINE PHOSPHATASE 189 U/L (45-117); BUN (BLOOD UREA NITROGEN) 28 MG/DL (6-23); PHOSPHORUS, SERUM 3.3 MG/DL (2.5-4.5); TRIGLYCERIDE 130 MG/DL (< 150)
[2016-06-23 06:14] LABS: BASOPHILS 0.3 %; BASOPHILS ABSOLUTE 0.04 10/3/uL (0.0-0.16); EOSINOPHILS 2.1 %; EOSINOPHILS ABSOLUTE 0.28 10/3/uL (0.0-0.53); HEMATOCRIT 37.2 % (40.0-51.0); HEMOGLOBIN 12.8 g/dL (13.6-17.8); IMMATURE GRANULOCYTES 0.7 %; LYMPHOCYTES 10.4 %; LYMPHOCYTES ABSOLUTE 1.41 10/3/uL (0.67-4.30); MANUAL DIFF NO %; MEAN CORPUS HGB CONC 34.4 g/dL (32.0-36.0); MEAN CORPUSCULAR HEMOGLOB 31.5 pg (26.0-34.0); MEAN CORPUSCULAR VOLUME 91.6 fL (80-100); MEAN PLATELET VOLUME 12.9 fL (9.2-13.0); MONOCYTES 11.2 %; MONOCYTES ABSOLUTE 1.51 10/3/uL (0.21-1.20); NEUTROPHILS 75.3 %; NEUTROPHILS ABSOLUTE 10.16 10/3/uL (2.02-8.40); PLATELET COUNT 347 10/3/uL (150-400); RED CELL COUNT 4.06 10/6/uL (4.7-6.1); WHITE BLOOD CELLS 13.5 10/3/uL (4.5-10.5)
[2016-06-23 06:20] LABS: BUN (BLOOD UREA NITROGEN) 21 MG/DL (6-23); CALCIUM, SERUM 8.9 MG/DL (8.5-10.4); CHLORIDE, SERUM 108 MMOL/L (96-112); CO2 (CARBON DIOXIDE) 22 MMOL/L (24-34); CREATININE 0.64 MG/DL (0.70-1.30); GFR AFRICAN AMERICAN 126 ML/MIN (>=60); GFR NON AFRICAN AMERICAN 109 ML/MIN (>=60); GLUCOSE, SERUM 161 MG/DL (60-99); PHOSPHORUS, SERUM 2.8 MG/DL (2.5-4.5); POTASSIUM, SERUM 3.4 MMOL/L (3.5-5.3); SODIUM, SERUM 141 MMOL/L (135-148)
[2016-06-24 06:11] LABS: HEMATOCRIT 39.7 % (40.0-51.0); HEMOGLOBIN 13.8 g/dL (13.6-17.8); MEAN CORPUS HGB CONC 34.8 g/dL (32.0-36.0); MEAN CORPUSCULAR HEMOGLOB 31.9 pg (26.0-34.0); MEAN CORPUSCULAR VOLUME 91.7 fL (80-100); MEAN PLATELET VOLUME 12.2 fL (9.2-13.0); PLATELET COUNT 430 10/3/uL (150-400); RBC DISTRIBUTION WIDTH 13.2 % (12.0-16.0); RED CELL COUNT 4.33 10/6/uL (4.7-6.1)
[2016-06-24 06:12] LABS: MANUAL DIFF YES %; WHITE BLOOD CELLS 23.4 10/3/uL (4.5-10.5)
[2016-06-24 06:22] LABS: A/G RATIO 0.5 (0.7-1.9); ALBUMIN 2.7 G/DL (3.5-5.0); CHLORIDE, SERUM 106 MMOL/L (96-112); CO2 (CARBON DIOXIDE) 23 MMOL/L (24-34); CREATININE 0.69 MG/DL (0.70-1.30); GFR AFRICAN AMERICAN 122 ML/MIN (>=60); GFR NON AFRICAN AMERICAN 105 ML/MIN (>=60); GLUCOSE, SERUM 175 MG/DL (60-99); PHOSPHORUS, SERUM 3.3 MG/DL (2.5-4.5); SGOT(AST) 66 U/L (5-40); SGPT(ALT) 81 U/L (5-65); SODIUM, SERUM 138 MMOL/L (135-148); TOTAL PROTEIN 7.7 G/DL (6.0-8.5)
[2016-06-24 06:23] LABS: ALKALINE PHOSPHATASE 485 U/L (45-117); BUN (BLOOD UREA NITROGEN) 26 MG/DL (6-23); POTASSIUM, SERUM 4.1 MMOL/L (3.5-5.3); TOTAL BILIRUBIN 0.8 MG/DL (0-1.2)
[2016-06-24 06:42] LABS: BAND NEUTROPHILS 2 %; IMMATURE GRANS ABSOLUTE (CALC) 0.23 10/3/uL (0.0-0.11); LYMPHOCYTES 11 %; LYMPHOCYTES ABSOLUTE (CALC) 2.57 10/3/uL (0.67-4.30); METAMYELOCYTES 1 %; MONOCYTES 5 %; MONOCYTES ABSOLUTE (CALC) 1.17 10/3/uL (0.21-1.20); NEUTROPHILS ABSOLUTE (CALC) 19.42 10/3/uL (2.02-8.40); PLATELET ESTIMATE SLT INC (ADEQUATE); RBC MORPHOLOGY NORM (NORMAL); SEGMENTED NEUTROPHIL (0) 81 %; TOTAL NUCLEATED CELLS 100
[2016-06-25 06:24] LABS: CALCIUM, SERUM 9.1 MG/DL (8.5-10.4); CHLORIDE, SERUM 104 MMOL/L (96-112); CO2 (CARBON DIOXIDE) 21 MMOL/L (24-34); CREATININE 0.67 MG/DL (0.70-1.30); GFR AFRICAN AMERICAN 124 ML/MIN (>=60); GFR NON AFRICAN AMERICAN 107 ML/MIN (>=60); GLUCOSE, SERUM 176 MG/DL (60-99); PHOSPHORUS, SERUM 3.8 MG/DL (2.5-4.5); POTASSIUM, SERUM 4.2 MMOL/L (3.5-5.3); SODIUM, SERUM 138 MMOL/L (135-148)
[2016-06-25 06:25] LABS: BUN (BLOOD UREA NITROGEN) 31 MG/DL (6-23)
[2016-06-26 04:27] LABS: HEMATOCRIT 40.2 % (40.0-51.0); HEMOGLOBIN 13.5 g/dL (13.6-17.8); MEAN CORPUS HGB CONC 33.6 g/dL (32.0-36.0); MEAN CORPUSCULAR HEMOGLOB 31.5 pg (26.0-34.0); MEAN CORPUSCULAR VOLUME 93.7 fL (80-100); MEAN PLATELET VOLUME 12.2 fL (9.2-13.0); PLATELET COUNT 461 10/3/uL (150-400); RBC DISTRIBUTION WIDTH 13.4 % (12.0-16.0); RED CELL COUNT 4.29 10/6/uL (4.7-6.1)
[2016-06-26 04:28] LABS: WHITE BLOOD CELLS 29.7 10/3/uL (4.5-10.5)
[2016-06-26 04:29] LABS: MANUAL DIFF YES %
[2016-06-26 04:44] LABS: A/G RATIO 0.6 (0.7-1.9); ALBUMIN 2.7 G/DL (3.5-5.0); ALKALINE PHOSPHATASE 432 U/L (45-117); BUN (BLOOD UREA NITROGEN) 33 MG/DL (6-23); CHLORIDE, SERUM 102 MMOL/L (96-112); CO2 (CARBON DIOXIDE) 28 MMOL/L (24-34); CREATININE 0.69 MG/DL (0.70-1.30); GFR AFRICAN AMERICAN 122 ML/MIN (>=60); GFR NON AFRICAN AMERICAN 105 ML/MIN (>=60); GLOBULIN 4.4 G/DL (2.5-4.1); GLUCOSE, SERUM 158 MG/DL (60-99); SGOT(AST) 80 U/L (5-40); SGPT(ALT) 141 U/L (5-65); SODIUM, SERUM 138 MMOL/L (135-148); TOTAL BILIRUBIN 0.7 MG/DL (0-1.2); TOTAL PROTEIN 7.1 G/DL (6.0-8.5)
[2016-06-26 04:56] LABS: BAND NEUTROPHILS 1 %; LYMPHOCYTES 8 %; LYMPHOCYTES ABSOLUTE (CALC) 2.38 10/3/uL (0.67-4.30); MONOCYTES 8 %; MONOCYTES ABSOLUTE (CALC) 2.38 10/3/uL (0.21-1.20); NEUTROPHILS ABSOLUTE (CALC) 24.95 10/3/uL (2.02-8.40); PLATELET ESTIMATE SLT INC (ADEQUATE); RBC MORPHOLOGY NORM (NORMAL); SEGMENTED NEUTROPHIL (0) 83 %; TOTAL NUCLEATED CELLS 100
[2016-06-27 05:36] LABS: HEMATOCRIT 41.6 % (40.0-51.0); HEMOGLOBIN 13.9 g/dL (13.6-17.8); MANUAL DIFF YES %; MEAN CORPUS HGB CONC 33.4 g/dL (32.0-36.0); MEAN CORPUSCULAR HEMOGLOB 31.3 pg (26.0-34.0); MEAN CORPUSCULAR VOLUME 93.7 fL (80-100); MEAN PLATELET VOLUME 12.5 fL (9.2-13.0); PLATELET COUNT 471 10/3/uL (150-400); RBC DISTRIBUTION WIDTH 13.2 % (12.0-16.0); RED CELL COUNT 4.44 10/6/uL (4.7-6.1); WHITE BLOOD CELLS 33.3 10/3/uL (4.5-10.5)
[2016-06-27 05:43] LABS: A/G RATIO 0.7 (0.7-1.9); ALBUMIN 2.8 G/DL (3.5-5.0); ALKALINE PHOSPHATASE 431 U/L (45-117); CALCIUM, SERUM 8.7 MG/DL (8.5-10.4); CHLORIDE, SERUM 104 MMOL/L (96-112); CO2 (CARBON DIOXIDE) 26 MMOL/L (24-34); CREATININE 0.67 MG/DL (0.70-1.30); GFR AFRICAN AMERICAN 124 ML/MIN (>=60); GFR NON AFRICAN AMERICAN 107 ML/MIN (>=60); GLOBULIN 4.3 G/DL (2.5-4.1); GLUCOSE, SERUM 161 MG/DL (60-99); PHOSPHORUS, SERUM 3.4 MG/DL (2.5-4.5); POTASSIUM, SERUM 4.4 MMOL/L (3.5-5.3); SGOT(AST) 70 U/L (5-40); SGPT(ALT) 155 U/L (5-65); SODIUM, SERUM 139 MMOL/L (135-148); TOTAL BILIRUBIN 0.5 MG/DL (0-1.2); TOTAL PROTEIN 7.1 G/DL (6.0-8.5)
[2016-06-27 05:44] LABS: BUN (BLOOD UREA NITROGEN) 29 MG/DL (6-23)
[2016-06-27 06:04] LABS: BAND NEUTROPHILS 4 %; EOSINOPHILS 1 %; EOSINOPHILS ABSOLUTE (CALC) 0.33 10/3/uL (0.0-0.53); IMMATURE GRANS ABSOLUTE (CALC) 0.67 10/3/uL (0.0-0.11); LYMPHOCYTES 5 %; LYMPHOCYTES ABSOLUTE (CALC) 1.67 10/3/uL (0.67-4.30); MONOCYTES 4 %; MONOCYTES ABSOLUTE (CALC) 1.33 10/3/uL (0.21-1.20); MYELOCYTES 2 %; PLATELET ESTIMATE SLT INC (ADEQUATE); RBC MORPHOLOGY NORM (NORMAL); SEGMENTED NEUTROPHIL (0) 84 %; TOTAL NUCLEATED CELLS 100
[2016-06-27 20:30] LABS: ASCORBIC ACID (UR NOT ORDER) NEG (NEG); BILIRUBIN, URINE NEGATIVE (NEG); KETONE, URINE NEGATIVE (NEG); LEUKOCYTE ESTERASE(NOT OR NEG (NEG); WBC (NOT ORDERED) (RFLEX) 1 (0-5)
[2016-06-28 06:33] LABS: HEMATOCRIT 37.5 % (40.0-51.0); HEMOGLOBIN 12.4 g/dL (13.6-17.8); MEAN CORPUS HGB CONC 33.1 g/dL (32.0-36.0); MEAN CORPUSCULAR HEMOGLOB 30.8 pg (26.0-34.0); MEAN CORPUSCULAR VOLUME 93.1 fL (80-100); MEAN PLATELET VOLUME 12.6 fL (9.2-13.0); PLATELET COUNT 406 10/3/uL (150-400); RBC DISTRIBUTION WIDTH 13.6 % (12.0-16.0); RED CELL COUNT 4.03 10/6/uL (4.7-6.1)
[2016-06-28 06:41] LABS: WHITE BLOOD CELLS 35.9 10/3/uL (4.5-10.5)
[2016-06-28 06:42] LABS: MANUAL DIFF YES %
[2016-06-28 06:48] LABS: A/G RATIO 0.6 (0.7-1.9); ALBUMIN 2.4 G/DL (3.5-5.0); ALKALINE PHOSPHATASE 303 U/L (45-117); BUN (BLOOD UREA NITROGEN) 34 MG/DL (6-23); CALCIUM, SERUM 8.5 MG/DL (8.5-10.4); CHLORIDE, SERUM 103 MMOL/L (96-112); CO2 (CARBON DIOXIDE) 28 MMOL/L (24-34); CREATININE 0.74 MG/DL (0.70-1.30); GFR AFRICAN AMERICAN 119 ML/MIN (>=60); GFR NON AFRICAN AMERICAN 102 ML/MIN (>=60); GLUCOSE, SERUM 182 MG/DL (60-99); PHOSPHORUS, SERUM 3.1 MG/DL (2.5-4.5); POTASSIUM, SERUM 4.6 MMOL/L (3.5-5.3); SGOT(AST) 26 U/L (5-40); SGPT(ALT) 83 U/L (5-65); SODIUM, SERUM 138 MMOL/L (135-148); TOTAL BILIRUBIN 1.2 MG/DL (0-1.2); TOTAL PROTEIN 6.4 G/DL (6.0-8.5); TRIGLYCERIDE 100 MG/DL (< 150)
[2016-06-28 07:22] LABS: BAND NEUTROPHILS 6 %; LYMPHOCYTES 2 %; LYMPHOCYTES ABSOLUTE (CALC) 0.72 10/3/uL (0.67-4.30); MONOCYTES 2 %; MONOCYTES ABSOLUTE (CALC) 0.72 10/3/uL (0.21-1.20); NEUTROPHILS ABSOLUTE (CALC) 34.46 10/3/uL (2.02-8.40); PLATELET ESTIMATE SLT INC (ADEQUATE); SEGMENTED NEUTROPHIL (0) 90 %; TOTAL NUCLEATED CELLS 100
[2016-06-28 07:23] LABS: RBC MORPHOLOGY NORM (NORMAL)
[2016-06-29 06:12] LABS: HEMOGLOBIN 10.1 g/dL (13.6-17.8); MEAN CORPUSCULAR HEMOGLOB 30.8 pg (26.0-34.0); MEAN CORPUSCULAR VOLUME 93.3 fL (80-100); MEAN PLATELET VOLUME 12.7 fL (9.2-13.0); RBC DISTRIBUTION WIDTH 13.5 % (12.0-16.0); RED CELL COUNT 3.28 10/6/uL (4.7-6.1)
[2016-06-29 06:15] LABS: HEMATOCRIT 30.6 % (40.0-51.0); PLATELET COUNT 271 10/3/uL (150-400); WHITE BLOOD CELLS 26.2 10/3/uL (4.5-10.5)
[2016-06-29 06:16] LABS: MANUAL DIFF YES %
[2016-06-29 06:34] LABS: A/G RATIO 0.5 (0.7-1.9); ALBUMIN 1.8 G/DL (3.5-5.0); ALKALINE PHOSPHATASE 180 U/L (45-117); BUN (BLOOD UREA NITROGEN) 30 MG/DL (6-23); CALCIUM, SERUM 7.5 MG/DL (8.5-10.4); CHLORIDE, SERUM 103 MMOL/L (96-112); CO2 (CARBON DIOXIDE) 29 MMOL/L (24-34); CREATININE 0.62 MG/DL (0.70-1.30); GFR AFRICAN AMERICAN 128 ML/MIN (>=60); GFR NON AFRICAN AMERICAN 110 ML/MIN (>=60); GLOBULIN 3.5 G/DL (2.5-4.1); GLUCOSE, SERUM 168 MG/DL (60-99); PHOSPHORUS, SERUM 2.7 MG/DL (2.5-4.5); POTASSIUM, SERUM 4.2 MMOL/L (3.5-5.3); SGOT(AST) 11 U/L (5-40); SGPT(ALT) 37 U/L (5-65); SODIUM, SERUM 138 MMOL/L (135-148); TOTAL BILIRUBIN 0.7 MG/DL (0-1.2); TOTAL PROTEIN 5.3 G/DL (6.0-8.5)
[2016-06-29 07:01] LABS: BAND NEUTROPHILS 4 %; IMMATURE GRANS ABSOLUTE (CALC) 0.52 10/3/uL (0.0-0.11); LYMPHOCYTES 6 %; LYMPHOCYTES ABSOLUTE (CALC) 1.57 10/3/uL (0.67-4.30); METAMYELOCYTES 2 %; MONOCYTES 1 %; MONOCYTES ABSOLUTE (CALC) 0.26 10/3/uL (0.21-1.20); NEUTROPHILS ABSOLUTE (CALC) 23.84 10/3/uL (2.02-8.40); SEGMENTED NEUTROPHIL (0) 87 %; TOTAL NUCLEATED CELLS 100
[2016-06-29 07:02] LABS: PLATELET ESTIMATE ADQ (ADEQUATE)
[2016-06-29 07:03] LABS: RBC MORPHOLOGY NORM (NORMAL); TOXIC GRANULATION 1+
[2016-06-30 06:14] LABS: HEMATOCRIT 29.1 % (40.0-51.0); HEMOGLOBIN 9.7 g/dL (13.6-17.8); MEAN CORPUS HGB CONC 33.3 g/dL (32.0-36.0); MEAN PLATELET VOLUME 13.3 fL (9.2-13.0); PLATELET COUNT 291 10/3/uL (150-400); RBC DISTRIBUTION WIDTH 13.2 % (12.0-16.0); RED CELL COUNT 3.13 10/6/uL (4.7-6.1)
[2016-06-30 06:19] LABS: A/G RATIO 0.5 (0.7-1.9); ALBUMIN 1.9 G/DL (3.5-5.0); ALKALINE PHOSPHATASE 265 U/L (45-117); BUN (BLOOD UREA NITROGEN) 20 MG/DL (6-23); CALCIUM, SERUM 7.9 MG/DL (8.5-10.4); CHLORIDE, SERUM 102 MMOL/L (96-112); CO2 (CARBON DIOXIDE) 27 MMOL/L (24-34); CREATININE 0.57 MG/DL (0.70-1.30); GFR AFRICAN AMERICAN 132 ML/MIN (>=60); GFR NON AFRICAN AMERICAN 114 ML/MIN (>=60); GLOBULIN 3.8 G/DL (2.5-4.1); GLUCOSE, SERUM 124 MG/DL (60-99); MANUAL DIFF YES %; PHOSPHORUS, SERUM 2.7 MG/DL (2.5-4.5); POTASSIUM, SERUM 4.1 MMOL/L (3.5-5.3); SGOT(AST) 18 U/L (5-40); SGPT(ALT) 31 U/L (5-65); SODIUM, SERUM 136 MMOL/L (135-148); TOTAL BILIRUBIN 0.8 MG/DL (0-1.2); TOTAL PROTEIN 5.7 G/DL (6.0-8.5); WHITE BLOOD CELLS 26.9 10/3/uL (4.5-10.5)
[2016-06-30 06:37] LABS: EOSINOPHILS 1 %; EOSINOPHILS ABSOLUTE (CALC) 0.27 10/3/uL (0.0-0.53); IMMATURE GRANS ABSOLUTE (CALC) 0.27 10/3/uL (0.0-0.11); LYMPHOCYTES 5 %; LYMPHOCYTES ABSOLUTE (CALC) 1.35 10/3/uL (0.67-4.30); METAMYELOCYTES 1 %; MONOCYTES 5 %; MONOCYTES ABSOLUTE (CALC) 1.35 10/3/uL (0.21-1.20); NEUTROPHILS ABSOLUTE (CALC) 23.67 10/3/uL (2.02-8.40); PLATELET ESTIMATE ADQ (ADEQUATE); RBC MORPHOLOGY NORM (NORMAL); SEGMENTED NEUTROPHIL (0) 88 %; TOTAL NUCLEATED CELLS 100
[2016-06-30 19:51] LABS: HEMATOCRIT 30.9 % (40.0-51.0); HEMOGLOBIN 10.3 g/dL (13.6-17.8)
[2016-07-01 00:28] LABS: HEMATOCRIT 31.1 % (40.0-51.0); HEMOGLOBIN 10.4 g/dL (13.6-17.8)
[2016-07-01 05:50] LABS: HEMATOCRIT 30.5 % (40.0-51.0); HEMOGLOBIN 10.2 g/dL (13.6-17.8); MEAN CORPUS HGB CONC 33.4 g/dL (32.0-36.0); MEAN CORPUSCULAR HEMOGLOB 30.8 pg (26.0-34.0); MEAN CORPUSCULAR VOLUME 92.1 fL (80-100); MEAN PLATELET VOLUME 12.2 fL (9.2-13.0); PLATELET COUNT 378 10/3/uL (150-400); RBC DISTRIBUTION WIDTH 13.3 % (12.0-16.0); RED CELL COUNT 3.31 10/6/uL (4.7-6.1)
[2016-07-01 06:01] LABS: ALBUMIN 1.9 G/DL (3.5-5.0); BUN (BLOOD UREA NITROGEN) 17 MG/DL (6-23); CALCIUM, SERUM 7.8 MG/DL (8.5-10.4); CHLORIDE, SERUM 99 MMOL/L (96-112); CO2 (CARBON DIOXIDE) 26 MMOL/L (24-34); CREATININE 0.63 MG/DL (0.70-1.30); GFR AFRICAN AMERICAN 127 ML/MIN (>=60); GFR NON AFRICAN AMERICAN 109 ML/MIN (>=60); GLUCOSE, SERUM 141 MG/DL (60-99); MANUAL DIFF YES %; PREALBUMIN 9.5 MG/DL (17.0-43.0); SODIUM, SERUM 134 MMOL/L (135-148); TRIGLYCERIDE 104 MG/DL (< 150); WHITE BLOOD CELLS 27.3 10/3/uL (4.5-10.5)
[2016-07-01 07:05] LABS: BAND NEUTROPHILS 17 %; IMMATURE GRANS ABSOLUTE (CALC) 0.27 10/3/uL (0.0-0.11); LYMPHOCYTES 1 %; LYMPHOCYTES ABSOLUTE (CALC) 0.27 10/3/uL (0.67-4.30); METAMYELOCYTES 1 %; MONOCYTES 2 %; MONOCYTES ABSOLUTE (CALC) 0.55 10/3/uL (0.21-1.20); NEUTROPHILS ABSOLUTE (CALC) 26.21 10/3/uL (2.02-8.40); PLATELET ESTIMATE ADQ (ADEQUATE); SEGMENTED NEUTROPHIL (0) 79 %; TOTAL NUCLEATED CELLS 100
[2016-07-01 07:06] LABS: POLYCHROMASIA 1+ (2-5/OIF) (0-1/OIF); TOXIC GRANULATION 1+; VACUOLATED NEUTROPHILES OCC
[2016-07-01 11:04] LABS: HEMATOCRIT 30.1 % (40.0-51.0)
[2016-07-01 18:25] LABS: HEMOGLOBIN 9.7 g/dL (13.6-17.8)
[2016-07-02 05:02] LABS: HEMOGLOBIN 8.9 g/dL (13.6-17.8); MEAN CORPUS HGB CONC 33.5 g/dL (32.0-36.0); MEAN CORPUSCULAR HEMOGLOB 30.8 pg (26.0-34.0); MEAN PLATELET VOLUME 11.8 fL (9.2-13.0); PLATELET COUNT 335 10/3/uL (150-400); RBC DISTRIBUTION WIDTH 13.4 % (12.0-16.0); RED CELL COUNT 2.89 10/6/uL (4.7-6.1)
[2016-07-02 05:03] LABS: HEMATOCRIT 26.6 % (40.0-51.0); WHITE BLOOD CELLS 27.7 10/3/uL (4.5-10.5)
[2016-07-02 05:04] LABS: MANUAL DIFF YES %
[2016-07-02 05:18] LABS: CALCIUM, SERUM 7.8 MG/DL (8.5-10.4); CHLORIDE, SERUM 103 MMOL/L (96-112); CO2 (CARBON DIOXIDE) 27 MMOL/L (24-34); CREATININE 0.61 MG/DL (0.70-1.30); GFR AFRICAN AMERICAN 128 ML/MIN (>=60); GFR NON AFRICAN AMERICAN 111 ML/MIN (>=60); GLUCOSE, SERUM 155 MG/DL (60-99); PHOSPHORUS, SERUM 2.6 MG/DL (2.5-4.5); POTASSIUM, SERUM 4.1 MMOL/L (3.5-5.3); SODIUM, SERUM 136 MMOL/L (135-148)
[2016-07-02 05:22] LABS: BUN (BLOOD UREA NITROGEN) 23 MG/DL (6-23)
[2016-07-02 05:37] LABS: LYMPHOCYTES 4 %; LYMPHOCYTES ABSOLUTE (CALC) 1.11 10/3/uL (0.67-4.30); NEUTROPHILS ABSOLUTE (CALC) 26.59 10/3/uL (2.02-8.40); PLATELET ESTIMATE ADQ (ADEQUATE); RBC MORPHOLOGY NORM (NORMAL); SEGMENTED NEUTROPHIL (0) 96 %; TOTAL NUCLEATED CELLS 100
[2016-07-02 10:34] LABS: HEMATOCRIT 25.9 % (40.0-51.0); HEMOGLOBIN 8.6 g/dL (13.6-17.8)
[2016-07-02 12:45] LABS: HEMATOCRIT 26.3 % (40.0-51.0); HEMOGLOBIN 8.7 g/dL (13.6-17.8)
[2016-07-02 14:44] LABS: HEMATOCRIT 27.6 % (40.0-51.0); HEMOGLOBIN 9.1 g/dL (13.6-17.8)
[2016-07-02 18:02] LABS: HEMATOCRIT 25.6 % (40.0-51.0); HEMOGLOBIN 8.6 g/dL (13.6-17.8)
[2016-07-02 22:03] LABS: HEMATOCRIT 25.8 % (40.0-51.0); HEMOGLOBIN 8.6 g/dL (13.6-17.8)
[2016-07-03 02:11] LABS: HEMATOCRIT 27.5 % (40.0-51.0); HEMOGLOBIN 9.1 g/dL (13.6-17.8)
[2016-07-03 06:05] LABS: INTERNATIONAL NORMAL RATI 1.3 UNITS (-); PROTIME (NOT ORD) 15.9 SEC (12.0-14.5)
[2016-07-03 06:06] LABS: A/G RATIO 0.4 (0.7-1.9); ALBUMIN 1.6 G/DL (3.5-5.0); BUN (BLOOD UREA NITROGEN) 23 MG/DL (6-23); CHLORIDE, SERUM 104 MMOL/L (96-112); CO2 (CARBON DIOXIDE) 24 MMOL/L (24-34); CREATININE 0.53 MG/DL (0.70-1.30); GFR AFRICAN AMERICAN 136 ML/MIN (>=60); GFR NON AFRICAN AMERICAN 117 ML/MIN (>=60); GLOBULIN 4.1 G/DL (2.5-4.1); GLUCOSE, SERUM 138 MG/DL (60-99); PARTIAL THROMBO TIME 38.2 SEC (22.5-37.2); SGOT(AST) 16 U/L (5-40); SGPT(ALT) 17 U/L (5-65); SODIUM, SERUM 138 MMOL/L (135-148); TOTAL BILIRUBIN 0.8 MG/DL (0-1.2); TOTAL PROTEIN 5.7 G/DL (6.0-8.5)
[2016-07-03 06:21] LABS: ALKALINE PHOSPHATASE 341 U/L (45-117); PHOSPHORUS, SERUM 3.4 MG/DL (2.5-4.5)
[2016-07-03 08:26] LABS: HEMATOCRIT 24.8 % (40.0-51.0); HEMOGLOBIN 8.1 g/dL (13.6-17.8); MEAN CORPUS HGB CONC 32.7 g/dL (32.0-36.0); MEAN CORPUSCULAR HEMOGLOB 30.5 pg (26.0-34.0); MEAN CORPUSCULAR VOLUME 93.2 fL (80-100); MEAN PLATELET VOLUME 12.2 fL (9.2-13.0); PLATELET COUNT 382 10/3/uL (150-400); RBC DISTRIBUTION WIDTH 13.5 % (12.0-16.0); RED CELL COUNT 2.66 10/6/uL (4.7-6.1); WHITE BLOOD CELLS 22.7 10/3/uL (4.5-10.5)
[2016-07-03 08:32] LABS: MANUAL DIFF YES %
[2016-07-03 09:10] LABS: BAND NEUTROPHILS 2 %; EOSINOPHILS 1 %; EOSINOPHILS ABSOLUTE (CALC) 0.23 10/3/uL (0.0-0.53); LYMPHOCYTES 5 %; LYMPHOCYTES ABSOLUTE (CALC) 1.14 10/3/uL (0.67-4.30); MONOCYTES 2 %; MONOCYTES ABSOLUTE (CALC) 0.45 10/3/uL (0.21-1.20); NEUTROPHILS ABSOLUTE (CALC) 20.88 10/3/uL (2.02-8.40); PLATELET ESTIMATE ADQ (ADEQUATE); RBC MORPHOLOGY NORM (NORMAL); SEGMENTED NEUTROPHIL (0) 90 %; TOTAL NUCLEATED CELLS 100
[2016-07-03 14:16] LABS: HEMATOCRIT 25.9 % (40.0-51.0); HEMOGLOBIN 8.6 g/dL (13.6-17.8)
[2016-07-03 20:38] LABS: HEMATOCRIT 25.2 % (40.0-51.0); HEMOGLOBIN 8.4 g/dL (13.6-17.8)
[2016-07-04 06:42] LABS: HEMATOCRIT 24.1 % (40.0-51.0); HEMOGLOBIN 7.9 g/dL (13.6-17.8); MEAN CORPUS HGB CONC 32.8 g/dL (32.0-36.0); MEAN CORPUSCULAR HEMOGLOB 30.3 pg (26.0-34.0); MEAN CORPUSCULAR VOLUME 92.3 fL (80-100); MEAN PLATELET VOLUME 11.6 fL (9.2-13.0); RBC DISTRIBUTION WIDTH 13.6 % (12.0-16.0); RED CELL COUNT 2.61 10/6/uL (4.7-6.1); WHITE BLOOD CELLS 18.8 10/3/uL (4.5-10.5)
[2016-07-04 06:43] LABS: MANUAL DIFF YES %; PLATELET COUNT 511 10/3/uL (150-400)
[2016-07-04 06:49] LABS: A/G RATIO 0.4 (0.7-1.9); ALBUMIN 1.7 G/DL (3.5-5.0); CALCIUM, SERUM 8.3 MG/DL (8.5-10.4); CHLORIDE, SERUM 100 MMOL/L (96-112); CO2 (CARBON DIOXIDE) 24 MMOL/L (24-34); CREATININE 0.56 MG/DL (0.70-1.30); GFR AFRICAN AMERICAN 133 ML/MIN (>=60); GFR NON AFRICAN AMERICAN 115 ML/MIN (>=60); GLOBULIN 4.6 G/DL (2.5-4.1); PHOSPHORUS, SERUM 3.7 MG/DL (2.5-4.5); SGOT(AST) 44 U/L (5-40); SGPT(ALT) 38 U/L (5-65); SODIUM, SERUM 134 MMOL/L (135-148); TOTAL BILIRUBIN 1.1 MG/DL (0-1.2); TOTAL PROTEIN 6.3 G/DL (6.0-8.5)
[2016-07-04 06:52] LABS: ALKALINE PHOSPHATASE 608 U/L (45-117); BUN (BLOOD UREA NITROGEN) 18 MG/DL (6-23); GLUCOSE, SERUM 106 MG/DL (60-99)
[2016-07-04 07:10] LABS: BAND NEUTROPHILS 4 %; EOSINOPHILS 1 %; EOSINOPHILS ABSOLUTE (CALC) 0.19 10/3/uL (0.0-0.53); LYMPHOCYTES 2 %; LYMPHOCYTES ABSOLUTE (CALC) 0.38 10/3/uL (0.67-4.30); MONOCYTES 6 %; MONOCYTES ABSOLUTE (CALC) 1.13 10/3/uL (0.21-1.20); NEUTROPHILS ABSOLUTE (CALC) 17.11 10/3/uL (2.02-8.40); NUCLEATED RED BLOOD CELLS 1 /100WBC (0); PLATELET ESTIMATE SLT INC (ADEQUATE); RBC MORPHOLOGY NORM (NORMAL); SEGMENTED NEUTROPHIL (0) 87 %; TOTAL NUCLEATED CELLS 100
[2016-07-04 12:08] LABS: HEMOGLOBIN 8.9 g/dL (13.6-17.8)
[2016-07-04 12:09] LABS: HEMATOCRIT 26.7 % (40.0-51.0)
[2016-07-04 20:21] LABS: HEMATOCRIT 27.2 % (40.0-51.0)
[2016-07-05 06:22] LABS: HEMATOCRIT 28.5 % (40.0-51.0); HEMOGLOBIN 9.5 g/dL (13.6-17.8); MEAN CORPUS HGB CONC 33.3 g/dL (32.0-36.0); MEAN CORPUSCULAR HEMOGLOB 30.2 pg (26.0-34.0); MEAN CORPUSCULAR VOLUME 90.5 fL (80-100); MEAN PLATELET VOLUME 10.9 fL (9.2-13.0); RBC DISTRIBUTION WIDTH 13.7 % (12.0-16.0)
[2016-07-05 06:27] LABS: PLATELET COUNT 676 10/3/uL (150-400); RED CELL COUNT 3.15 10/6/uL (4.7-6.1); WHITE BLOOD CELLS 25.2 10/3/uL (4.5-10.5)
[2016-07-05 06:29] LABS: MANUAL DIFF YES %
[2016-07-05 06:36] LABS: A/G RATIO 0.4 (0.7-1.9); ALBUMIN 1.8 G/DL (3.5-5.0); BUN (BLOOD UREA NITROGEN) 19 MG/DL (6-23); CALCIUM, SERUM 8.4 MG/DL (8.5-10.4); CHLORIDE, SERUM 99 MMOL/L (96-112); CO2 (CARBON DIOXIDE) 26 MMOL/L (24-34); CREATININE 0.66 MG/DL (0.70-1.30); GFR AFRICAN AMERICAN 124 ML/MIN (>=60); GFR NON AFRICAN AMERICAN 107 ML/MIN (>=60); GLOBULIN 4.7 G/DL (2.5-4.1); PHOSPHORUS, SERUM 3.5 MG/DL (2.5-4.5); SGOT(AST) 31 U/L (5-40); SGPT(ALT) 39 U/L (5-65); SODIUM, SERUM 133 MMOL/L (135-148); TOTAL BILIRUBIN 1.2 MG/DL (0-1.2); TOTAL PROTEIN 6.5 G/DL (6.0-8.5)
[2016-07-05 06:42] LABS: ALKALINE PHOSPHATASE 657 U/L (45-117); GLUCOSE, SERUM 160 MG/DL (60-99)
[2016-07-05 06:54] LABS: BAND NEUTROPHILS 15 %; IMMATURE GRANS ABSOLUTE (CALC) 0.76 10/3/uL (0.0-0.11); LYMPHOCYTES 7 %; LYMPHOCYTES ABSOLUTE (CALC) 1.76 10/3/uL (0.67-4.30); METAMYELOCYTES 3 %; MONOCYTES 7 %; MONOCYTES ABSOLUTE (CALC) 1.76 10/3/uL (0.21-1.20); NEUTROPHILS ABSOLUTE (CALC) 20.92 10/3/uL (2.02-8.40); PLATELET ESTIMATE INC (ADEQUATE); RBC MORPHOLOGY NORM (NORMAL); SEGMENTED NEUTROPHIL (0) 68 %; TOTAL NUCLEATED CELLS 100
[2016-07-05 12:50] LABS: HEMATOCRIT 27.8 % (40.0-51.0); HEMOGLOBIN 9.2 g/dL (13.6-17.8)
[2016-07-05 20:25] LABS: HEMATOCRIT 28.9 % (40.0-51.0); HEMOGLOBIN 9.5 g/dL (13.6-17.8)
[2016-07-06 05:09] LABS: HEMATOCRIT 26.4 % (40.0-51.0); HEMOGLOBIN 8.7 g/dL (13.6-17.8); MEAN CORPUSCULAR HEMOGLOB 29.9 pg (26.0-34.0); MEAN CORPUSCULAR VOLUME 90.7 fL (80-100); MEAN PLATELET VOLUME 10.6 fL (9.2-13.0); PLATELET COUNT 623 10/3/uL (150-400); RBC DISTRIBUTION WIDTH 13.7 % (12.0-16.0); RED CELL COUNT 2.91 10/6/uL (4.7-6.1)
[2016-07-06 05:17] LABS: WHITE BLOOD CELLS 27.1 10/3/uL (4.5-10.5)
[2016-07-06 05:18] LABS: MANUAL DIFF YES %
[2016-07-06 05:41] LABS: A/G RATIO 0.4 (0.7-1.9); ALBUMIN 1.7 G/DL (3.5-5.0); BUN (BLOOD UREA NITROGEN) 19 MG/DL (6-23); CHLORIDE, SERUM 101 MMOL/L (96-112); CO2 (CARBON DIOXIDE) 25 MMOL/L (24-34); CREATININE 0.52 MG/DL (0.70-1.30); GFR AFRICAN AMERICAN 137 ML/MIN (>=60); GFR NON AFRICAN AMERICAN 118 ML/MIN (>=60); GLOBULIN 4.7 G/DL (2.5-4.1); GLUCOSE, SERUM 146 MG/DL (60-99); POTASSIUM, SERUM 4.1 MMOL/L (3.5-5.3); SGOT(AST) 17 U/L (5-40); SGPT(ALT) 27 U/L (5-65); SODIUM, SERUM 136 MMOL/L (135-148); TOTAL BILIRUBIN 0.8 MG/DL (0-1.2); TOTAL PROTEIN 6.4 G/DL (6.0-8.5)
[2016-07-06 05:53] LABS: ALKALINE PHOSPHATASE 534 U/L (45-117)
[2016-07-06 07:36] LABS: BAND NEUTROPHILS 9 %; EOSINOPHILS 5 %; EOSINOPHILS ABSOLUTE (CALC) 1.36 10/3/uL (0.0-0.53); IMMATURE GRANS ABSOLUTE (CALC) 0.81 10/3/uL (0.0-0.11); LYMPHOCYTES 4 %; LYMPHOCYTES ABSOLUTE (CALC) 1.08 10/3/uL (0.67-4.30); METAMYELOCYTES 2 %; MONOCYTES 5 %; MONOCYTES ABSOLUTE (CALC) 1.36 10/3/uL (0.21-1.20); MYELOCYTES 1 %; NEUTROPHILS ABSOLUTE (CALC) 22.49 10/3/uL (2.02-8.40); NUCLEATED RED BLOOD CELLS 1 /100WBC (0); PLATELET ESTIMATE INC (ADEQUATE); RBC MORPHOLOGY NORM (NORMAL); SEGMENTED NEUTROPHIL (0) 74 %; TOTAL NUCLEATED CELLS 100
[2016-07-07 06:17] LABS: HEMATOCRIT 25.1 % (40.0-51.0); HEMOGLOBIN 8.4 g/dL (13.6-17.8); MEAN CORPUS HGB CONC 33.5 g/dL (32.0-36.0); MEAN CORPUSCULAR HEMOGLOB 30.5 pg (26.0-34.0); MEAN CORPUSCULAR VOLUME 91.3 fL (80-100); MEAN PLATELET VOLUME 10.4 fL (9.2-13.0); PLATELET COUNT 616 10/3/uL (150-400); RBC DISTRIBUTION WIDTH 13.8 % (12.0-16.0); RED CELL COUNT 2.75 10/6/uL (4.7-6.1); WHITE BLOOD CELLS 21.3 10/3/uL (4.5-10.5)
[2016-07-07 06:22] LABS: MANUAL DIFF YES %
[2016-07-07 06:35] LABS: A/G RATIO 0.4 (0.7-1.9); ALBUMIN 1.7 G/DL (3.5-5.0); ALKALINE PHOSPHATASE 639 U/L (45-117); BUN (BLOOD UREA NITROGEN) 16 MG/DL (6-23); CALCIUM, SERUM 8.1 MG/DL (8.5-10.4); CHLORIDE, SERUM 101 MMOL/L (96-112); CO2 (CARBON DIOXIDE) 26 MMOL/L (24-34); CREATININE 0.46 MG/DL (0.70-1.30); GFR AFRICAN AMERICAN 144 ML/MIN (>=60); GFR NON AFRICAN AMERICAN 124 ML/MIN (>=60); GLOBULIN 4.5 G/DL (2.5-4.1); GLUCOSE, SERUM 138 MG/DL (60-99); PHOSPHORUS, SERUM 2.9 MG/DL (2.5-4.5); POTASSIUM, SERUM 3.9 MMOL/L (3.5-5.3); SGOT(AST) 28 U/L (5-40); SGPT(ALT) 30 U/L (5-65); SODIUM, SERUM 134 MMOL/L (135-148); TOTAL BILIRUBIN 0.8 MG/DL (0-1.2); TOTAL PROTEIN 6.2 G/DL (6.0-8.5)
[2016-07-07 08:20] LABS: BAND NEUTROPHILS 7 %; EOSINOPHILS 3 %; EOSINOPHILS ABSOLUTE (CALC) 0.64 10/3/uL (0.0-0.53); IMMATURE GRANS ABSOLUTE (CALC) 0.43 10/3/uL (0.0-0.11); LYMPHOCYTES 9 %; LYMPHOCYTES ABSOLUTE (CALC) 1.92 10/3/uL (0.67-4.30); METAMYELOCYTES 2 %; MONOCYTES 5 %; MONOCYTES ABSOLUTE (CALC) 1.07 10/3/uL (0.21-1.20); NEUTROPHILS ABSOLUTE (CALC) 17.25 10/3/uL (2.02-8.40); PLATELET ESTIMATE INC (ADEQUATE); SEGMENTED NEUTROPHIL (0) 74 %; TOTAL NUCLEATED CELLS 100
[2016-07-07 08:21] LABS: POLYCHROMASIA 1+ (2-5/OIF) (0-1/OIF); TARGET CELLS OCC (1-2/OIF) (0-1/OIF); TEARDROP SHAPED RBCS OCC (0-2/OIF); TOXIC GRANULATION 1+; VACUOLATED NEUTROPHILES OCC
[2016-07-07 12:08] LABS: HEMOGLOBIN 9.5 g/dL (13.6-17.8)
[2016-07-07 12:11] LABS: HEMATOCRIT 29.2 % (40.0-51.0)
[2016-07-07 20:02] LABS: HEMOGLOBIN 9.1 g/dL (13.6-17.8)
[2016-07-08 05:01] LABS: BASOPHILS 0.1 %; BASOPHILS ABSOLUTE 0.02 10/3/uL (0.0-0.16); EOSINOPHILS 2.5 %; EOSINOPHILS ABSOLUTE 0.44 10/3/uL (0.0-0.53); HEMATOCRIT 24.3 % (40.0-51.0); IMMATURE GRANULOCYTES 2.8 %; IMMATURE GRANULOCYTES ABSOLUTE 0.48 10/3/uL (0.0-0.11); LYMPHOCYTES 9.6 %; LYMPHOCYTES ABSOLUTE 1.67 10/3/uL (0.67-4.30); MEAN CORPUS HGB CONC 32.9 g/dL (32.0-36.0); MEAN CORPUSCULAR HEMOGLOB 29.9 pg (26.0-34.0); MEAN CORPUSCULAR VOLUME 90.7 fL (80-100); MEAN PLATELET VOLUME 10.5 fL (9.2-13.0); MONOCYTES 6.4 %; MONOCYTES ABSOLUTE 1.11 10/3/uL (0.21-1.20); NEUTROPHILS 78.6 %; NEUTROPHILS ABSOLUTE 13.61 10/3/uL (2.02-8.40); PLATELET COUNT 589 10/3/uL (150-400); RBC DISTRIBUTION WIDTH 13.9 % (12.0-16.0); RED CELL COUNT 2.68 10/6/uL (4.7-6.1); WHITE BLOOD CELLS 17.3 10/3/uL (4.5-10.5)
[2016-07-08 05:02] LABS: MANUAL DIFF NO %
[2016-07-08 05:18] LABS: A/G RATIO 0.4 (0.7-1.9); ALBUMIN 1.7 G/DL (3.5-5.0); BUN (BLOOD UREA NITROGEN) 17 MG/DL (6-23); CHLORIDE, SERUM 104 MMOL/L (96-112); CO2 (CARBON DIOXIDE) 24 MMOL/L (24-34); CREATININE 0.53 MG/DL (0.70-1.30); GFR AFRICAN AMERICAN 136 ML/MIN (>=60); GFR NON AFRICAN AMERICAN 117 ML/MIN (>=60); GLOBULIN 4.3 G/DL (2.5-4.1); GLUCOSE, SERUM 139 MG/DL (60-99); PHOSPHORUS, SERUM 3.2 MG/DL (2.5-4.5); POTASSIUM, SERUM 3.7 MMOL/L (3.5-5.3); SGOT(AST) 57 U/L (5-40); SGPT(ALT) 45 U/L (5-65); SODIUM, SERUM 135 MMOL/L (135-148); TOTAL BILIRUBIN 0.6 MG/DL (0-1.2)
[2016-07-08 05:22] LABS: ALKALINE PHOSPHATASE 742 U/L (45-117)
[2016-07-08 13:06] LABS: HEMOGLOBIN 9.3 g/dL (13.6-17.8)
[2016-07-08 13:16] LABS: HEMATOCRIT 28.3 % (40.0-51.0)
[2016-07-09 07:03] LABS: HEMATOCRIT 28.1 % (40.0-51.0); MEAN CORPUSCULAR HEMOGLOB 29.6 pg (26.0-34.0); MEAN CORPUSCULAR VOLUME 92.4 fL (80-100); MEAN PLATELET VOLUME 10.3 fL (9.2-13.0); PLATELET COUNT 659 10/3/uL (150-400); RBC DISTRIBUTION WIDTH 13.9 % (12.0-16.0); RED CELL COUNT 3.04 10/6/uL (4.7-6.1); WHITE BLOOD CELLS 19.4 10/3/uL (4.5-10.5)
[2016-07-09 07:05] LABS: MANUAL DIFF YES %
[2016-07-09 07:17] LABS: BUN (BLOOD UREA NITROGEN) 17 MG/DL (6-23); CALCIUM, SERUM 8.2 MG/DL (8.5-10.4); CHLORIDE, SERUM 102 MMOL/L (96-112); CO2 (CARBON DIOXIDE) 25 MMOL/L (24-34); CREATININE 0.59 MG/DL (0.70-1.30); GFR AFRICAN AMERICAN 130 ML/MIN (>=60); GFR NON AFRICAN AMERICAN 112 ML/MIN (>=60); GLUCOSE, SERUM 133 MG/DL (60-99); PHOSPHORUS, SERUM 3.2 MG/DL (2.5-4.5); POTASSIUM, SERUM 3.7 MMOL/L (3.5-5.3); SODIUM, SERUM 136 MMOL/L (135-148); TRIGLYCERIDE 78 MG/DL (< 150)
[2016-07-09 07:28] LABS: BAND NEUTROPHILS 10 %; EOSINOPHILS 2 %; EOSINOPHILS ABSOLUTE (CALC) 0.39 10/3/uL (0.0-0.53); IMMATURE GRANS ABSOLUTE (CALC) 0.39 10/3/uL (0.0-0.11); LYMPHOCYTES 8 %; LYMPHOCYTES ABSOLUTE (CALC) 1.55 10/3/uL (0.67-4.30); METAMYELOCYTES 1 %; MONOCYTES 4 %; MONOCYTES ABSOLUTE (CALC) 0.78 10/3/uL (0.21-1.20); MYELOCYTES 1 %; PLATELET ESTIMATE INC (ADEQUATE); POLYCHROMASIA 2+ (5-10/OIF) (0-1/OIF); SEGMENTED NEUTROPHIL (0) 74 %; TOTAL NUCLEATED CELLS 100
[2016-07-09 07:29] LABS: TOXIC GRANULATION 1+
[2016-07-09 10:19] LABS: HEMOGLOBIN 9.7 g/dL (13.6-17.8)
[2016-07-09 16:06] LABS: HEMATOCRIT 29.5 % (40.0-51.0); HEMOGLOBIN 9.6 g/dL (13.6-17.8)
[2016-07-10 00:54] LABS: HEMATOCRIT 29.1 % (40.0-51.0); HEMOGLOBIN 9.4 g/dL (13.6-17.8)
[2016-07-10 05:57] LABS: BUN (BLOOD UREA NITROGEN) 16 MG/DL (6-23); CALCIUM, SERUM 8.8 MG/DL (8.5-10.4); CHLORIDE, SERUM 100 MMOL/L (96-112); CO2 (CARBON DIOXIDE) 23 MMOL/L (24-34); GFR AFRICAN AMERICAN 139 ML/MIN (>=60); GFR NON AFRICAN AMERICAN 120 ML/MIN (>=60); GLUCOSE, SERUM 127 MG/DL (60-99); PHOSPHORUS, SERUM 3.4 MG/DL (2.5-4.5); SODIUM, SERUM 133 MMOL/L (135-148)
[2016-07-11 06:19] LABS: HEMOGLOBIN 10.4 g/dL (13.6-17.8); MEAN CORPUS HGB CONC 32.5 g/dL (32.0-36.0); MEAN CORPUSCULAR HEMOGLOB 29.5 pg (26.0-34.0); MEAN CORPUSCULAR VOLUME 90.7 fL (80-100); MEAN PLATELET VOLUME 10.3 fL (9.2-13.0); PLATELET COUNT 673 10/3/uL (150-400); RBC DISTRIBUTION WIDTH 14.2 % (12.0-16.0); RED CELL COUNT 3.53 10/6/uL (4.7-6.1)
[2016-07-11 06:25] LABS: WHITE BLOOD CELLS 33.7 10/3/uL (4.5-10.5)
[2016-07-11 06:26] LABS: MANUAL DIFF YES %
[2016-07-11 06:34] LABS: ALBUMIN 2.2 G/DL (3.5-5.0); BUN (BLOOD UREA NITROGEN) 20 MG/DL (6-23); CALCIUM, SERUM 8.3 MG/DL (8.5-10.4); CHLORIDE, SERUM 102 MMOL/L (96-112); CO2 (CARBON DIOXIDE) 24 MMOL/L (24-34); GFR AFRICAN AMERICAN 139 ML/MIN (>=60); GFR NON AFRICAN AMERICAN 120 ML/MIN (>=60); GLUCOSE, SERUM 143 MG/DL (60-99); PHOSPHORUS, SERUM 3.5 MG/DL (2.5-4.5); POTASSIUM, SERUM 4.3 MMOL/L (3.5-5.3); SODIUM, SERUM 133 MMOL/L (135-148)
[2016-07-11 07:51] LABS: BAND NEUTROPHILS 2 %; EOSINOPHILS 2 %; EOSINOPHILS ABSOLUTE (CALC) 0.67 10/3/uL (0.0-0.53); LYMPHOCYTES 11 %; LYMPHOCYTES ABSOLUTE (CALC) 3.71 10/3/uL (0.67-4.30); MONOCYTES 4 %; MONOCYTES ABSOLUTE (CALC) 1.35 10/3/uL (0.21-1.20); NEUTROPHILS ABSOLUTE (CALC) 27.97 10/3/uL (2.02-8.40); PLATELET ESTIMATE INC (ADEQUATE); SEGMENTED NEUTROPHIL (0) 81 %; TOTAL NUCLEATED CELLS 100
[2016-07-11 07:52] LABS: POLYCHROMASIA 1+ (2-5/OIF) (0-1/OIF); STOMATOCYTES 1+ (3-10/OIF) (0-2/OIF)
[2016-07-11 07:53] LABS: TARGET CELLS OCC (1-2/OIF) (0-1/OIF)
[2016-07-12 07:06] LABS: BASOPHILS 0.1 %; BASOPHILS ABSOLUTE 0.02 10/3/uL (0.0-0.16); EOSINOPHILS 2.2 %; EOSINOPHILS ABSOLUTE 0.43 10/3/uL (0.0-0.53); HEMOGLOBIN 9.2 g/dL (13.6-17.8); IMMATURE GRANULOCYTES 1.1 %; IMMATURE GRANULOCYTES ABSOLUTE 0.22 10/3/uL (0.0-0.11); LYMPHOCYTES 7.4 %; LYMPHOCYTES ABSOLUTE 1.45 10/3/uL (0.67-4.30); MEAN CORPUSCULAR HEMOGLOB 29.4 pg (26.0-34.0); MEAN CORPUSCULAR VOLUME 89.1 fL (80-100); MEAN PLATELET VOLUME 10.1 fL (9.2-13.0); MONOCYTES 5.1 %; MONOCYTES ABSOLUTE 0.99 10/3/uL (0.21-1.20); NEUTROPHILS 84.1 %; NEUTROPHILS ABSOLUTE 16.37 10/3/uL (2.02-8.40); RBC DISTRIBUTION WIDTH 14.2 % (12.0-16.0); RED CELL COUNT 3.13 10/6/uL (4.7-6.1)
[2016-07-12 07:08] LABS: HEMATOCRIT 27.9 % (40.0-51.0); MANUAL DIFF NO %; PLATELET COUNT 469 10/3/uL (150-400); WHITE BLOOD CELLS 19.5 10/3/uL (4.5-10.5)
[2016-07-12 07:25] LABS: BUN (BLOOD UREA NITROGEN) 21 MG/DL (6-23); CHLORIDE, SERUM 101 MMOL/L (96-112); CO2 (CARBON DIOXIDE) 25 MMOL/L (24-34); CREATININE 0.53 MG/DL (0.70-1.30); GFR AFRICAN AMERICAN 136 ML/MIN (>=60); GFR NON AFRICAN AMERICAN 117 ML/MIN (>=60); GLUCOSE, SERUM 132 MG/DL (60-99); PHOSPHORUS, SERUM 2.8 MG/DL (2.5-4.5); SODIUM, SERUM 135 MMOL/L (135-148)
[2016-07-13 06:37] LABS: BASOPHILS 0.2 %; BASOPHILS ABSOLUTE 0.03 10/3/uL (0.0-0.16); EOSINOPHILS 2.9 %; EOSINOPHILS ABSOLUTE 0.48 10/3/uL (0.0-0.53); HEMATOCRIT 29.4 % (40.0-51.0); HEMOGLOBIN 9.6 g/dL (13.6-17.8); IMMATURE GRANULOCYTES 0.9 %; IMMATURE GRANULOCYTES ABSOLUTE 0.14 10/3/uL (0.0-0.11); LYMPHOCYTES 7.5 %; LYMPHOCYTES ABSOLUTE 1.24 10/3/uL (0.67-4.30); MEAN CORPUS HGB CONC 32.7 g/dL (32.0-36.0); MEAN CORPUSCULAR HEMOGLOB 29.2 pg (26.0-34.0); MEAN CORPUSCULAR VOLUME 89.4 fL (80-100); MEAN PLATELET VOLUME 10.4 fL (9.2-13.0); MONOCYTES 7.8 %; MONOCYTES ABSOLUTE 1.28 10/3/uL (0.21-1.20); NEUTROPHILS 80.7 %; PLATELET COUNT 461 10/3/uL (150-400); RBC DISTRIBUTION WIDTH 13.8 % (12.0-16.0); RED CELL COUNT 3.29 10/6/uL (4.7-6.1); WHITE BLOOD CELLS 16.5 10/3/uL (4.5-10.5)
[2016-07-13 06:40] LABS: MANUAL DIFF NO %
[2016-07-13 06:45] LABS: A/G RATIO 0.5 (0.7-1.9); ALBUMIN 2.1 G/DL (3.5-5.0); BUN (BLOOD UREA NITROGEN) 19 MG/DL (6-23); CHLORIDE, SERUM 100 MMOL/L (96-112); CO2 (CARBON DIOXIDE) 23 MMOL/L (24-34); CREATININE 0.61 MG/DL (0.70-1.30); GFR AFRICAN AMERICAN 128 ML/MIN (>=60); GFR NON AFRICAN AMERICAN 111 ML/MIN (>=60); GLOBULIN 4.5 G/DL (2.5-4.1); GLUCOSE, SERUM 127 MG/DL (60-99); PHOSPHORUS, SERUM 3.1 MG/DL (2.5-4.5); SGPT(ALT) 24 U/L (5-65); SODIUM, SERUM 135 MMOL/L (135-148); TOTAL BILIRUBIN 0.4 MG/DL (0-1.2); TOTAL PROTEIN 6.6 G/DL (6.0-8.5)
[2016-07-13 06:47] LABS: ALKALINE PHOSPHATASE 456 U/L (45-117); SGOT(AST) 33 U/L (5-40)
[2016-07-14 07:35] LABS: BASOPHILS 0.2 %; BASOPHILS ABSOLUTE 0.03 10/3/uL (0.0-0.16); EOSINOPHILS 3.8 %; EOSINOPHILS ABSOLUTE 0.53 10/3/uL (0.0-0.53); HEMATOCRIT 29.2 % (40.0-51.0); HEMOGLOBIN 9.5 g/dL (13.6-17.8); IMMATURE GRANULOCYTES 0.8 %; IMMATURE GRANULOCYTES ABSOLUTE 0.11 10/3/uL (0.0-0.11); LYMPHOCYTES 8.8 %; LYMPHOCYTES ABSOLUTE 1.22 10/3/uL (0.67-4.30); MEAN CORPUS HGB CONC 32.5 g/dL (32.0-36.0); MEAN CORPUSCULAR HEMOGLOB 28.8 pg (26.0-34.0); MEAN CORPUSCULAR VOLUME 88.5 fL (80-100); MEAN PLATELET VOLUME 10.3 fL (9.2-13.0); MONOCYTES 8.5 %; MONOCYTES ABSOLUTE 1.18 10/3/uL (0.21-1.20); NEUTROPHILS 77.9 %; NEUTROPHILS ABSOLUTE 10.79 10/3/uL (2.02-8.40); PLATELET COUNT 367 10/3/uL (150-400); RBC DISTRIBUTION WIDTH 13.7 % (12.0-16.0); WHITE BLOOD CELLS 13.9 10/3/uL (4.5-10.5)
[2016-07-14 07:46] LABS: MANUAL DIFF NO %
[2016-07-14 07:51] LABS: ALBUMIN 2.1 G/DL (3.5-5.0); BUN (BLOOD UREA NITROGEN) 18 MG/DL (6-23); CHLORIDE, SERUM 103 MMOL/L (96-112); CO2 (CARBON DIOXIDE) 24 MMOL/L (24-34); CREATININE 0.52 MG/DL (0.70-1.30); GFR AFRICAN AMERICAN 137 ML/MIN (>=60); GFR NON AFRICAN AMERICAN 118 ML/MIN (>=60); GLUCOSE, SERUM 124 MG/DL (60-99); PHOSPHORUS, SERUM 3.4 MG/DL (2.5-4.5); POTASSIUM, SERUM 3.9 MMOL/L (3.5-5.3); SODIUM, SERUM 135 MMOL/L (135-148)
[2016-07-15 06:10] LABS: BASOPHILS 0.3 %; BASOPHILS ABSOLUTE 0.04 10/3/uL (0.0-0.16); EOSINOPHILS 3.8 %; EOSINOPHILS ABSOLUTE 0.51 10/3/uL (0.0-0.53); HEMATOCRIT 28.6 % (40.0-51.0); HEMOGLOBIN 9.4 g/dL (13.6-17.8); IMMATURE GRANULOCYTES 0.5 %; IMMATURE GRANULOCYTES ABSOLUTE 0.07 10/3/uL (0.0-0.11); LYMPHOCYTES 11.7 %; LYMPHOCYTES ABSOLUTE 1.58 10/3/uL (0.67-4.30); MEAN CORPUS HGB CONC 32.9 g/dL (32.0-36.0); MEAN CORPUSCULAR HEMOGLOB 28.9 pg (26.0-34.0); MEAN PLATELET VOLUME 10.6 fL (9.2-13.0); MONOCYTES 6.4 %; MONOCYTES ABSOLUTE 0.87 10/3/uL (0.21-1.20); NEUTROPHILS 77.3 %; NEUTROPHILS ABSOLUTE 10.46 10/3/uL (2.02-8.40); PLATELET COUNT 401 10/3/uL (150-400); RBC DISTRIBUTION WIDTH 13.9 % (12.0-16.0); RED CELL COUNT 3.25 10/6/uL (4.7-6.1); WHITE BLOOD CELLS 13.5 10/3/uL (4.5-10.5)
[2016-07-15 06:11] LABS: MANUAL DIFF NO %
[2016-07-15 06:20] LABS: BUN (BLOOD UREA NITROGEN) 17 MG/DL (6-23); CALCIUM, SERUM 8.4 MG/DL (8.5-10.4); CHLORIDE, SERUM 101 MMOL/L (96-112); CO2 (CARBON DIOXIDE) 25 MMOL/L (24-34); CREATININE 0.47 MG/DL (0.70-1.30); GFR AFRICAN AMERICAN 143 ML/MIN (>=60); GFR NON AFRICAN AMERICAN 123 ML/MIN (>=60); GLUCOSE, SERUM 117 MG/DL (60-99); PHOSPHORUS, SERUM 3.3 MG/DL (2.5-4.5); POTASSIUM, SERUM 4.1 MMOL/L (3.5-5.3); SODIUM, SERUM 133 MMOL/L (135-148)
[2016-07-16 06:36] LABS: BASOPHILS 0.2 %; BASOPHILS ABSOLUTE 0.03 10/3/uL (0.0-0.16); EOSINOPHILS 2.4 %; EOSINOPHILS ABSOLUTE 0.37 10/3/uL (0.0-0.53); HEMATOCRIT 30.9 % (40.0-51.0); HEMOGLOBIN 9.9 g/dL (13.6-17.8); IMMATURE GRANULOCYTES ABSOLUTE 0.15 10/3/uL (0.0-0.11); LYMPHOCYTES 10.4 %; MANUAL DIFF NO %; MEAN CORPUSCULAR HEMOGLOB 28.5 pg (26.0-34.0); MEAN PLATELET VOLUME 10.2 fL (9.2-13.0); MONOCYTES ABSOLUTE 0.78 10/3/uL (0.21-1.20); NEUTROPHILS ABSOLUTE 12.52 10/3/uL (2.02-8.40); PLATELET COUNT 434 10/3/uL (150-400); RBC DISTRIBUTION WIDTH 13.8 % (12.0-16.0); RED CELL COUNT 3.47 10/6/uL (4.7-6.1); WHITE BLOOD CELLS 15.5 10/3/uL (4.5-10.5)
[2016-07-16 06:49] LABS: BUN (BLOOD UREA NITROGEN) 16 MG/DL (6-23); CALCIUM, SERUM 8.4 MG/DL (8.5-10.4); CHLORIDE, SERUM 103 MMOL/L (96-112); CO2 (CARBON DIOXIDE) 25 MMOL/L (24-34); CREATININE 0.42 MG/DL (0.70-1.30); GFR AFRICAN AMERICAN 150 ML/MIN (>=60); GFR NON AFRICAN AMERICAN 129 ML/MIN (>=60); GLUCOSE, SERUM 123 MG/DL (60-99); PHOSPHORUS, SERUM 3.5 MG/DL (2.5-4.5); POTASSIUM, SERUM 3.9 MMOL/L (3.5-5.3); SODIUM, SERUM 132 MMOL/L (135-148)
[2016-07-17 04:53] LABS: BASOPHILS 0.3 %; BASOPHILS ABSOLUTE 0.05 10/3/uL (0.0-0.16); EOSINOPHILS ABSOLUTE 0.32 10/3/uL (0.0-0.53); HEMATOCRIT 29.9 % (40.0-51.0); HEMOGLOBIN 9.8 g/dL (13.6-17.8); IMMATURE GRANULOCYTES 0.8 %; IMMATURE GRANULOCYTES ABSOLUTE 0.12 10/3/uL (0.0-0.11); LYMPHOCYTES 9.9 %; LYMPHOCYTES ABSOLUTE 1.55 10/3/uL (0.67-4.30); MEAN CORPUS HGB CONC 32.8 g/dL (32.0-36.0); MEAN CORPUSCULAR HEMOGLOB 28.7 pg (26.0-34.0); MEAN CORPUSCULAR VOLUME 87.7 fL (80-100); MEAN PLATELET VOLUME 10.5 fL (9.2-13.0); MONOCYTES 7.9 %; MONOCYTES ABSOLUTE 1.24 10/3/uL (0.21-1.20); NEUTROPHILS 79.1 %; NEUTROPHILS ABSOLUTE 12.45 10/3/uL (2.02-8.40); PLATELET COUNT 431 10/3/uL (150-400); RED CELL COUNT 3.41 10/6/uL (4.7-6.1); WHITE BLOOD CELLS 15.7 10/3/uL (4.5-10.5)
[2016-07-17 04:58] LABS: MANUAL DIFF NO %
[2016-07-17 05:04] LABS: BUN (BLOOD UREA NITROGEN) 14 MG/DL (6-23); CALCIUM, SERUM 8.1 MG/DL (8.5-10.4); CHLORIDE, SERUM 101 MMOL/L (96-112); CO2 (CARBON DIOXIDE) 26 MMOL/L (24-34); CREATININE 0.46 MG/DL (0.70-1.30); GFR AFRICAN AMERICAN 144 ML/MIN (>=60); GFR NON AFRICAN AMERICAN 124 ML/MIN (>=60); GLUCOSE, SERUM 122 MG/DL (60-99); PHOSPHORUS, SERUM 3.8 MG/DL (2.5-4.5); POTASSIUM, SERUM 4.1 MMOL/L (3.5-5.3); SODIUM, SERUM 136 MMOL/L (135-148)
[2016-07-18 07:10] LABS: BASOPHILS 0.2 %; BASOPHILS ABSOLUTE 0.04 10/3/uL (0.0-0.16); EOSINOPHILS 1.5 %; EOSINOPHILS ABSOLUTE 0.24 10/3/uL (0.0-0.53); HEMOGLOBIN 10.6 g/dL (13.6-17.8); IMMATURE GRANULOCYTES 0.7 %; IMMATURE GRANULOCYTES ABSOLUTE 0.11 10/3/uL (0.0-0.11); LYMPHOCYTES 8.3 %; LYMPHOCYTES ABSOLUTE 1.34 10/3/uL (0.67-4.30); MEAN CORPUS HGB CONC 32.2 g/dL (32.0-36.0); MEAN CORPUSCULAR HEMOGLOB 28.6 pg (26.0-34.0); MEAN CORPUSCULAR VOLUME 88.7 fL (80-100); MEAN PLATELET VOLUME 10.6 fL (9.2-13.0); MONOCYTES 6.3 %; MONOCYTES ABSOLUTE 1.02 10/3/uL (0.21-1.20); NEUTROPHILS ABSOLUTE 13.37 10/3/uL (2.02-8.40); PLATELET COUNT 412 10/3/uL (150-400); RBC DISTRIBUTION WIDTH 13.8 % (12.0-16.0); RED CELL COUNT 3.71 10/6/uL (4.7-6.1); WHITE BLOOD CELLS 16.1 10/3/uL (4.5-10.5)
[2016-07-18 07:11] LABS: HEMATOCRIT 32.9 % (40.0-51.0); MANUAL DIFF NO %
[2016-07-18 07:24] LABS: BUN (BLOOD UREA NITROGEN) 15 MG/DL (6-23); CALCIUM, SERUM 8.3 MG/DL (8.5-10.4); CHLORIDE, SERUM 102 MMOL/L (96-112); CO2 (CARBON DIOXIDE) 26 MMOL/L (24-34); CREATININE 0.51 MG/DL (0.70-1.30); GFR AFRICAN AMERICAN 138 ML/MIN (>=60); GFR NON AFRICAN AMERICAN 119 ML/MIN (>=60); GLUCOSE, SERUM 132 MG/DL (60-99); PHOSPHORUS, SERUM 3.5 MG/DL (2.5-4.5); POTASSIUM, SERUM 4.1 MMOL/L (3.5-5.3); SODIUM, SERUM 134 MMOL/L (135-148)
[2016-07-18] MEDS ORDERED: REG PO (18:18)
[2016-07-18] MEDS ORDERED: DURICEF PO (18:20)
[2016-07-18] MEDS ORDERED: PROTONIX PO (18:21)
[2016-07-18] MEDS ORDERED: CARASPUDL PO (18:22)
[2016-10-12] MEDS ORDERED: MULTIVIT/MIN PO (09:34)
== END 2016-07-18 19:41 | disposition home health service (06) | DRG 326 ==
LOC: ER 09:55 → 5SO 14:18 → 7NO 06-23 17:14 → SDC/OF 07-06 15:52 → 7NO 07-06 16:11
PROVIDERS: Emergency Medicine; Hospitalist; Internal Medicine; Nurse Practitioner Acute Care; Nurse Practitioner Family; Specialist; Surgery
PROC: 0DJ08ZZ Inspection of Upper Intestinal Tract, Via Natural or Artificial Opening Endoscopic (ICD-10-PCS; 2016-06-11)
PROC: BD47ZZZ Ultrasonography of Gastrointestinal Tract (ICD-10-PCS; 2016-06-11)
PROC: 02HV33Z Insertion of Infusion Device into Superior Vena Cava, Percutaneous Approach (ICD-10-PCS; 2016-06-13)
PROC: 4A02X4A Measurement of Cardiac Electrical Activity, Guidance, External Approach (ICD-10-PCS; 2016-06-13)
PROC: 0FT40ZZ Resection of Gallbladder, Open Approach (ICD-10-PCS; principal; 2016-06-18 12:00)
PROC: 0D160ZA Bypass Stomach to Jejunum, Open Approach (ICD-10-PCS; 2016-06-18 12:00)
PROC: 0W3P8ZZ Control Bleeding in Gastrointestinal Tract, Via Natural or Artificial Opening Endoscopic (ICD-10-PCS; 2016-06-28)
PROC: 0W3P8ZZ Control Bleeding in Gastrointestinal Tract, Via Natural or Artificial Opening Endoscopic (ICD-10-PCS; 2016-06-28)
PROC: 0W9F30Z Drainage of Abdominal Wall with Drainage Device, Percutaneous Approach (ICD-10-PCS; 2016-07-04)
PROC: 0W2FX0Z Change Drainage Device in Abdominal Wall, External Approach (ICD-10-PCS; 2016-07-10)
DX: K31.5 Obstruction of duodenum (principal); E43 Unspecified severe protein-calorie malnutrition; K65.1 Peritoneal abscess; N17.9 Acute kidney failure, unspecified; K86.3 Pseudocyst of pancreas; I48.0 Paroxysmal atrial fibrillation; K81.9 Cholecystitis, unspecified; D62 Acute posthemorrhagic anemia; I97.89 Other postprocedural complications and disorders of the circulatory system, not elsewhere classified; K91.3 Postprocedural intestinal obstruction; K91.840 Postprocedural hemorrhage of a digestive system organ or structure following a digestive system procedure; K92.2 Gastrointestinal hemorrhage, unspecified; K91.870 Postprocedural hematoma of a digestive system organ or structure following a digestive system procedure; G60.0 Hereditary motor and sensory neuropathy; I48.91 Unspecified atrial fibrillation; Z88.1 Allergy status to other antibiotic agents; Z88.8 Allergy status to other drugs, medicaments and biological substances; Z80.8 Family history of malignant neoplasm of other organs or systems; K21.0 Gastro-esophageal reflux disease with esophagitis; E87.6 Hypokalemia; Z68.20 Body mass index [BMI] 20.0-20.9, adult; B96.1 Klebsiella pneumoniae [K. pneumoniae] as the cause of diseases classified elsewhere; B95.61 Methicillin susceptible Staphylococcus aureus infection as the cause of diseases classified elsewhere
CPT/HCPCS: 36415; 36569; 49083; 49406; 49418; 49423; 49424; 71010; 74000; 74020; 74150; 74176; 74177; 74183; 74249; 75984; 76080; 80048; 80053; 80069; 80076; 81001; 82150; 82272; 82330; 82962; 83605; 83615; 83690; 83735; 84100; 84132; 84134; 84145; 84478; 85014; 85018; 85025; 85610; 85730; 86301; 86850; 86900; 86901; 87040; 87045; 87046; 87046-59; 87070; 87075; 87077; 87186; 87205; 87493; 87493-59; 87899; 87899-59; 88304; 88307; 88331; 93005; 93306; 96374; 97161-GP; 99285; A9270-GY; A9581; C1725; C1729; C1751; C1769; C9113; G8978-CH-GP; G8979-CH-GP; G8980-CH-GP; J0282; J0330; J0690; J1170; J1885; J2250; J2270; J2405; J2543; J2550; J2710; J2765; J2795; J3010; J3230; J3370; J3410; P9045; Q9967

== ENCOUNTER 2016-07-20 13:54 | Inpatient (IN) | payer MEDICARE ==
[~2016-07-20 13:54] MED LIST: CARASPUDL PO; DURICEF PO; MOBIC15 MG PO; NORCO1 TAB PO; PROTONIX PO; REG PO
[2016-07-20 14:50] LABS: BASOPHILS 0.2 %; BASOPHILS ABSOLUTE 0.03 10/3/uL (0.0-0.16); EOSINOPHILS 0.5 %; EOSINOPHILS ABSOLUTE 0.07 10/3/uL (0.0-0.53); IMMATURE GRANULOCYTES 0.5 %; IMMATURE GRANULOCYTES ABSOLUTE 0.07 10/3/uL (0.0-0.11); LYMPHOCYTES 7.7 %; LYMPHOCYTES ABSOLUTE 1.14 10/3/uL (0.67-4.30); MEAN CORPUS HGB CONC 32.9 g/dL (32.0-36.0); MEAN CORPUSCULAR HEMOGLOB 28.8 pg (26.0-34.0); MEAN CORPUSCULAR VOLUME 87.5 fL (80-100); MEAN PLATELET VOLUME 10.7 fL (9.2-13.0); MONOCYTES 7.4 %; MONOCYTES ABSOLUTE 1.09 10/3/uL (0.21-1.20); NEUTROPHILS 83.7 %; NEUTROPHILS ABSOLUTE 12.31 10/3/uL (2.02-8.40); RBC DISTRIBUTION WIDTH 13.8 % (12.0-16.0); WHITE BLOOD CELLS 14.7 10/3/uL (4.5-10.5)
[2016-07-20 14:51] LABS: HEMATOCRIT 44.7 % (40.0-51.0); HEMOGLOBIN 14.7 g/dL (13.6-17.8); MANUAL DIFF NO %; PLATELET COUNT 625 10/3/uL (150-400); RED CELL COUNT 5.11 10/6/uL (4.7-6.1)
[2016-07-20 15:05] LABS: CO2 (CARBON DIOXIDE) 28 MMOL/L (24-34); CREATININE 0.91 MG/DL (0.70-1.30); GFR AFRICAN AMERICAN 108 ML/MIN (>=60); GFR NON AFRICAN AMERICAN 93 ML/MIN (>=60); GLUCOSE, SERUM 119 MG/DL (60-99); POTASSIUM, SERUM 4.3 MMOL/L (3.5-5.3); SGOT(AST) 19 U/L (5-40); SGPT(ALT) 22 U/L (5-65); SODIUM, SERUM 129 MMOL/L (135-148); TOTAL BILIRUBIN 0.8 MG/DL (0-1.2)
[2016-07-20 15:07] LABS: A/G RATIO 0.7 (0.7-1.9); ALBUMIN 3.9 G/DL (3.5-5.0); ALKALINE PHOSPHATASE 409 U/L (45-117); BUN (BLOOD UREA NITROGEN) 22 MG/DL (6-23); CALCIUM, SERUM 10.2 MG/DL (8.5-10.4); CHLORIDE, SERUM 92 MMOL/L (96-112); GLOBULIN 5.7 G/DL (2.5-4.1); TOTAL PROTEIN 9.6 G/DL (6.0-8.5)
[2016-07-20] MEDS ORDERED: DURICEF PO (17:21)
[2016-07-20] MEDS ORDERED: PROTONIX PO (17:22)
[2016-07-20] MEDS ORDERED: REG PO (17:22)
[2016-07-20] MEDS ORDERED: NORCO1 TAB PO (17:23)
[2016-07-21 04:10] LABS: BASOPHILS 0.3 %; BASOPHILS ABSOLUTE 0.04 10/3/uL (0.0-0.16); EOSINOPHILS 1.8 %; EOSINOPHILS ABSOLUTE 0.23 10/3/uL (0.0-0.53); IMMATURE GRANULOCYTES 0.8 %; LYMPHOCYTES 16.5 %; LYMPHOCYTES ABSOLUTE 2.15 10/3/uL (0.67-4.30); MEAN CORPUS HGB CONC 32.1 g/dL (32.0-36.0); MEAN CORPUSCULAR HEMOGLOB 28.2 pg (26.0-34.0); MEAN CORPUSCULAR VOLUME 87.8 fL (80-100); MEAN PLATELET VOLUME 10.7 fL (9.2-13.0); MONOCYTES 10.5 %; MONOCYTES ABSOLUTE 1.37 10/3/uL (0.21-1.20); NEUTROPHILS 70.1 %; NEUTROPHILS ABSOLUTE 9.12 10/3/uL (2.02-8.40); PLATELET COUNT 568 10/3/uL (150-400); RBC DISTRIBUTION WIDTH 13.8 % (12.0-16.0)
[2016-07-21 04:17] LABS: HEMATOCRIT 35.2 % (40.0-51.0); HEMOGLOBIN 11.3 g/dL (13.6-17.8); MANUAL DIFF NO %; RED CELL COUNT 4.01 10/6/uL (4.7-6.1)
[2016-07-21 04:23] LABS: BUN (BLOOD UREA NITROGEN) 20 MG/DL (6-23); CHLORIDE, SERUM 100 MMOL/L (96-112); CO2 (CARBON DIOXIDE) 25 MMOL/L (24-34); CREATININE 0.64 MG/DL (0.70-1.30); GFR AFRICAN AMERICAN 126 ML/MIN (>=60); GFR NON AFRICAN AMERICAN 109 ML/MIN (>=60); POTASSIUM, SERUM 3.8 MMOL/L (3.5-5.3); SODIUM, SERUM 134 MMOL/L (135-148)
[2016-07-21 04:25] LABS: CALCIUM, SERUM 8.7 MG/DL (8.5-10.4); GLUCOSE, SERUM 93 MG/DL (60-99)
[2016-07-22 03:22] LABS: BASOPHILS 0.2 %; BASOPHILS ABSOLUTE 0.02 10/3/uL (0.0-0.16); EOSINOPHILS ABSOLUTE 0.19 10/3/uL (0.0-0.53); HEMATOCRIT 30.6 % (40.0-51.0); IMMATURE GRANULOCYTES 0.3 %; IMMATURE GRANULOCYTES ABSOLUTE 0.03 10/3/uL (0.0-0.11); LYMPHOCYTES 19.2 %; LYMPHOCYTES ABSOLUTE 1.78 10/3/uL (0.67-4.30); MANUAL DIFF NO %; MEAN CORPUS HGB CONC 32.7 g/dL (32.0-36.0); MEAN CORPUSCULAR HEMOGLOB 28.4 pg (26.0-34.0); MEAN CORPUSCULAR VOLUME 86.9 fL (80-100); MONOCYTES 8.8 %; MONOCYTES ABSOLUTE 0.82 10/3/uL (0.21-1.20); NEUTROPHILS 69.5 %; NEUTROPHILS ABSOLUTE 6.45 10/3/uL (2.02-8.40); PLATELET COUNT 392 10/3/uL (150-400); RBC DISTRIBUTION WIDTH 13.7 % (12.0-16.0); RED CELL COUNT 3.52 10/6/uL (4.7-6.1); WHITE BLOOD CELLS 9.3 10/3/uL (4.5-10.5)
[2016-07-22 03:34] LABS: BUN (BLOOD UREA NITROGEN) 10 MG/DL (6-23); CALCIUM, SERUM 8.5 MG/DL (8.5-10.4); CHLORIDE, SERUM 103 MMOL/L (96-112); CO2 (CARBON DIOXIDE) 25 MMOL/L (24-34); CREATININE 0.47 MG/DL (0.70-1.30); GFR AFRICAN AMERICAN 143 ML/MIN (>=60); GFR NON AFRICAN AMERICAN 123 ML/MIN (>=60); GLUCOSE, SERUM 93 MG/DL (60-99); POTASSIUM, SERUM 3.6 MMOL/L (3.5-5.3); SODIUM, SERUM 135 MMOL/L (135-148)
[2016-10-12] MEDS ORDERED: MULTIVIT/MIN PO (09:34)
== END 2016-07-22 13:04 | disposition home or self-care (01) | DRG 641 ==
LOC: CDU2 13:54
PROVIDERS: Specialist
DX: E86.0 Dehydration (principal); R11.2 Nausea with vomiting, unspecified; Z88.1 Allergy status to other antibiotic agents; Z88.8 Allergy status to other drugs, medicaments and biological substances; Z98.0 Intestinal bypass and anastomosis status; Z90.49 Acquired absence of other specified parts of digestive tract
CPT/HCPCS: 74176; 80048; 80053; 82150; 83690; 83735; 85025; A9270-GY; C9113; J2765; J2930